=== PATIENT | female | born 1935 | race Caucasian/White ===

== ENCOUNTER → 2023-04-20 08:15 | Outpatient (REF) | payer MEDICARE, BC, SELFPAY ==
[2023-04-20 09:01] LABS: Hematocrit 48.9 % (37.0-47.0); Hemoglobin 15.9 g/dL (12.0-16.0); Mean Corp Hgb Conc. 32.5 g/dL (33.0-37.0); Mean Corpuscular Hgb 30.3 pg (27.0-31.0); Mean Corpuscular Volume 93.1 fL (81.0-99.0); Mean Platelet Volume 11.1 fL (7.4-10.4); Platelet Count 238 10^3/uL (130-400); Red Blood Cell Count 5.25 10^6/uL (4.20-5.40); Red Cell Dist. Width 13.6 % (11.5-14.5); White Blood Cell Count 8.8 10^3/uL (4.8-10.8)
[2023-04-20 09:33] LABS: ALT (SGPT) 13 U/L (0-35); AST (SGOT) 20 U/L (14-36); Albumin 4.7 g/dl (3.5-5.0); Alkaline Phosphatase 93 U/L (38-126); Blood Urea Nitrogen 26 mg/dl (7-17); Carbon Dioxide 25 mmol/L (22-30); Chloride 106 mmol/L (98-107); Glucose 95 mg/dl (70-99); HDL Cholesterol 98 mg/dl; LDL Cholesterol, Calculated 117 mg/dl; Phosphorus 4.3 mg/dl (2.5-4.5); Potassium 4.2 mmol/L (3.5-5.1); Sodium 141 mmol/L (135-145); Total Bilirubin 1.9 mg/dl (0.2-1.3); Total Cholesterol 235 mg/dl (50-199); Total Protein 7.1 g/dl (6.3-8.2); Triglyceride 104 mg/dl (10-149); Very Low Density Lipoprotein 20 mg/dl (0-30); eGFR 25.24
[2023-04-20 09:58] LABS: Intact PTH 88.4 pg/ml (13.6-85.8)
[2023-04-20 17:57] LABS: Urine Albumin Trace (Neg - Trace); Urine Bilirubin Negative (Negative); Urine Character Clear (Clear); Urine Color Yellow; Urine Glucose Negative (Negative); Urine Ketone Negative (Negative); Urine Leukocyte Negative (Negative); Urine Nitrite Negative (Negative); Urine Occult Blood Negative (Negative); Urine Urobilinogen Negative (Neg - 1+)
== END ==
LOC: REG 08:15
PROVIDERS: ATTENDING PHYSICIAN Specialist
DX: N18.32 Chronic kidney disease, stage 3b (principal)
CPT/HCPCS: 36415; 80053; 80061; 80069; 81003; 83970; 85027

== ENCOUNTER → 2023-05-07 09:07 | Outpatient (REF) | payer MEDICARE, BC, SELFPAY ==
[2023-05-07 10:49] LABS: Blood Urea Nitrogen 28 mg/dl (7-17); Calcium 9.6 mg/dl (8.4-10.2); Carbon Dioxide 26 mmol/L (22-30); Chloride 108 mmol/L (98-107); Glucose 84 mg/dl (70-99); Potassium 5.2 mmol/L (3.5-5.1); Sodium 138 mmol/L (135-145); eGFR 22.38
== END ==
LOC: REG 09:07
PROVIDERS: ATTENDING PHYSICIAN Specialist; FAMILY PHYSICIAN Internal Medicine
DX: I10 Essential (primary) hypertension (principal); N18.4 Chronic kidney disease, stage 4 (severe)
CPT/HCPCS: 36415; 80048

== ENCOUNTER → 2023-05-27 10:03 | Outpatient (REF) | payer MEDICARE, BC, SELFPAY ==
[2023-05-27 12:02] LABS: Blood Urea Nitrogen 21 mg/dl (7-17); Calcium 10.3 mg/dl (8.4-10.2); Carbon Dioxide 24 mmol/L (22-30); Chloride 107 mmol/L (98-107); Glucose 89 mg/dl (70-99); Potassium 4.7 mmol/L (3.5-5.1); Sodium 139 mmol/L (135-145); eGFR 28.84
== END ==
LOC: REG 10:03
PROVIDERS: ATTENDING PHYSICIAN Specialist
DX: I10 Essential (primary) hypertension (principal); N18.4 Chronic kidney disease, stage 4 (severe)
CPT/HCPCS: 36415; 80048

== ENCOUNTER → 2023-07-01 09:49 | Outpatient (REF) | payer MEDICARE, BC, SELFPAY | LOC: RAD 09:49 | PROVIDERS: ATTENDING PHYSICIAN Podiatrist Foot Surgery; FAMILY PHYSICIAN Internal Medicine | DX: Z01.818 Encounter for other preprocedural examination (principal) | CPT/HCPCS: 93922; 93925 ==

== ENCOUNTER → 2023-08-12 09:20 | Outpatient (REF) | payer MEDICARE, BC, SELFPAY | LOC: HWRCS 09:20 | PROVIDERS: ATTENDING PHYSICIAN Internal Medicine Cardiovascular Disease; FAMILY PHYSICIAN Internal Medicine | DX: I34.0 Nonrheumatic mitral (valve) insufficiency (principal) | CPT/HCPCS: 93306 ==

== ENCOUNTER → 2023-08-23 11:52 | Outpatient (REF) | payer MEDICARE, BC, SELFPAY | LOC: RCS 11:52 | PROVIDERS: ATTENDING PHYSICIAN Internal Medicine Cardiovascular Disease; FAMILY PHYSICIAN Family Medicine | DX: I48.21 Permanent atrial fibrillation (principal) | CPT/HCPCS: 93225; 93226 ==

== ENCOUNTER → 2023-08-30 08:40 | Outpatient (REF) | payer MEDICARE, BC, SELFPAY ==
[2023-08-30 09:52] LABS: Hematocrit 49.3 % (37.0-47.0); Hemoglobin 15.5 g/dL (12.0-16.0); Mean Corp Hgb Conc. 31.4 g/dL (33.0-37.0); Mean Corpuscular Hgb 29.4 pg (27.0-31.0); Mean Corpuscular Volume 93.5 fL (81.0-99.0); Mean Platelet Volume 11.3 fL (7.4-10.4); Platelet Count 207 10^3/uL (130-400); Red Blood Cell Count 5.27 10^6/uL (4.20-5.40); White Blood Cell Count 7.9 10^3/uL (4.8-10.8)
[2023-08-30 09:56] LABS: Blood Urea Nitrogen 30 mg/dl (7-17); Carbon Dioxide 24 mmol/L (22-30); Chloride 108 mmol/L (98-107); Glucose 89 mg/dl (70-99); Potassium 4.8 mmol/L (3.5-5.1); Sodium 142 mmol/L (135-145); eGFR 28.67
== END ==
LOC: REG 08:40
PROVIDERS: ATTENDING PHYSICIAN Specialist
DX: N18.32 Chronic kidney disease, stage 3b (principal); E78.5 Hyperlipidemia, unspecified
CPT/HCPCS: 36415; 80048; 85027

== ENCOUNTER 2023-08-30 09:01 | Emergency (ER) | payer MEDICARE, BC, SELFPAY ==
[2023-08-30 09:03] VITALS: BP 169/97
--- NOTE | 2023-08-30 09:35 | ED.MUSCINJ ---
HPI-Injury
General
Chief Complaint: Skin Problem
Source: patient
Exam Limitations: none
Time Seen by Provider: 08/30/23 09:07
Nursing documentation reviewed up to this point in time: agreed with
History of Present Illness-Injury
Initial Injury comments:
88 yo female hx afib on Eliquis, HTN, HLD states a heavy metal chair fell over impacting her right lateral hernandez 3 days ago. Has had pain with ambulating off and on since. She also has felt fatigued and wonders if she has a clot. Denies SOB, CP.
Past History
Past History
ED Past Medical History: Arrthythmia, CHF, GERD, HTN and Hypercholesterolemia
ED Past Surgical History: Gynecological and Other
Social History
Tobacco: Non-smoker
Alcohol: None
Personal:
Living: with family
Employment: Retired
Family History
Family History: Other (Noncontributory)
Review of Systems
Review of Systems
Allergies reviewed?: Yes
All Other Systems: ROS reviewed and negative except as documented in HPI and ROS
Respiratory: Denies trouble breathing
Cardiac: Denies chest pain
Musculoskeletal: Reports other (pain bruise out right lower leg)
Phy Exam
Physical Exam
Physical Exam:
GENERAL: No acute distress. A&Ox3.
CONSTITUTIONAL: Afebrile.
RESPIRATORY: Regular respirations, nonlabored, lungs clear.
CARDIOVASCULAR: Regular rate and rhythm, no murmurs, no rubs.
GI: Soft, nontender
MUSCULOSKELETAL: Moves with ease. Well perfused. Lateral aspect lower leg has area of mild ecchymosis and mild tenderness. There is no
SKIN: Warm, dry, pink
PSYCH: Normal mood and affect. Well kept, interactive and appropriate
NEUROLOGIC: Awake, alert and oriented. No focal neurological deficits
Injury Course
Orders/Labs/Results
Orders:
Orders
08/30/23 09:16
Tib/Fib, Right 2 View [CR Leg Tibia/fibula Right 2 Vw] Urgent
Comment:
Reason For Exam: impact heavy chair to lateral lower hernandez
MDM/Problems Addressed
Differential Diagnosis Includes:
contusion, fracture.
MDM/Problems Addressed:
88 yo female hx afib on Eliquis, HTN, HLD states a heavy metal chair fell over impacting her right lateral hernandez 3 days ago. Has had pain with ambulating off and on since. She also has felt fatigued and wonders if she has a clot. Denies SOB, CP.
Right calf not swollen, tender, warm, on Eliquis do not suspect clot
Xray Right Tib fib read by me: No fracture.
Patient out of bed and ambulating well, dressing herself, stable for discharge.
For her feeling fatigued: No chest pain, no SOB, no n/v, no indication for cardiac w/u.
Out pt labs from earlier today reviewed, nothing worrisome, basically at her baseline. Provided copy to pt. She will f/u with her F[employer] Puller who ordered labs.
Pt feels much better after reassurance. Offered wheelchair for D/C but she insisted on walking out.
*Critical Care Note
Total Time (30-74mins, 75-104mins- exclusive of procedures): Not Applicable
ED Attending Note
-
Portions of this chart may have been created with voice recognition software.� Occasional wrong word or��sound alike� substitutions may have occurred due to the inherent limitations of voice recognition software.
Discharge Plan
Departure
Patient Disposition: Home (Routine Discharge)
Date of Disposition: 08/30/23
Time of Disposition: 10:10
Patient with high blood pressure during this ER visit?: No
Condition: Good
Discharge Problem:
Contusion of right lower leg
Instructions: Contusion
Prescriptions:
No Action
cholecalciferol (vitamin D3) 1,000 UNITS tablet
1,000 units PO DAILY
Eliquis 2.5 MG tablet
2.5 mg PO BID Qty: 1 0RF
Rx Instructions:
resume after 14 days post-op when INR <2
--stop Coumadin
atorvastatin 20 MG tablet
20 mg PO DAILY
diltiazem HCl 240 MG capsule,extended release 24hr
240 mg PO DAILY
docusate sodium 100 mg Capsule
100 mg PO BID Qty: 60 0RF
polyethylene glycol 3350 17 gram Powder In Packet
17 g PO DAILY Qty: 30 0RF
Referrals:
Jessica Villalobos, DO [Family Provider] - As needed
Activity Restrictions/Additional Instructions:
As we discussed, your x-ray shows nothing broken. This is a deep bruise or contusion.
You have no sign of a blood clot.
I reviewed your lab work from earlier this morning and see nothing worrisome
Interventions
Interventions:
*Risk Screen - Suicide Last Done: 08/30/23 09:03
*General Assessment Last Done: 08/30/23 09:03
*Neglect/Abuse Screening Last Done: 08/30/23 09:03
ED- Fall Risk Assessment Last Done: 08/30/23 10:24
*ED COVID-19 Vaccine History Last Done: 08/30/23 10:23
*Nursing Disposition Last Done: 08/30/23 10:24
ED-Skin Assessment Last Done: 08/30/23 10:23
Discharge Date and Time
Discharge Date/Time: 08/30/23 10:25
Print Language: NIUEAN
[2023-08-30 10:24] VITALS: BP 167/82
== END 2023-08-30 10:25 | disposition home or self-care (01) ==
LOC: EMR 09:01
PROVIDERS: EMERGENCY PHYSICIAN Emergency Medicine; FAMILY PHYSICIAN Family Medicine
DX: S80.11XA Contusion of right lower leg, initial encounter (principal); W20.8XXA Other cause of strike by thrown, projected or falling object, initial encounter; E78.00 Pure hypercholesterolemia, unspecified; I11.0 Hypertensive heart disease with heart failure; I50.9 Heart failure, unspecified; I13.0 Hypertensive heart and chronic kidney disease with heart failure and stage 1 through stage 4 chronic kidney disease, or unspecified chronic kidney disease; N18.2 Chronic kidney disease, stage 2 (mild); K21.9 Gastro-esophageal reflux disease without esophagitis; I48.91 Unspecified atrial fibrillation; M19.90 Unspecified osteoarthritis, unspecified site; F41.9 Anxiety disorder, unspecified; Z79.01 Long term (current) use of anticoagulants; Z85.828 Personal history of other malignant neoplasm of skin; Z86.73 Personal history of transient ischemic attack (TIA), and cerebral infarction without residual deficits
CPT/HCPCS: 99283; 73590

== ENCOUNTER → 2024-05-09 08:40 | Outpatient (REF) | payer MEDICARE, BC, SELFPAY ==
[2024-05-09 11:00] LABS: Protein/creatinine Ratio 0.4; Urine Protein 11 mg/dl
== END ==
LOC: REG 08:40
PROVIDERS: ATTENDING PHYSICIAN Specialist
DX: N18.32 Chronic kidney disease, stage 3b (principal); I10 Essential (primary) hypertension; I48.0 Paroxysmal atrial fibrillation; E78.2 Mixed hyperlipidemia; R60.0 Localized edema
CPT/HCPCS: 36415; 82570; 84156

== ENCOUNTER → 2024-06-26 13:41 | Outpatient (REF) | payer MEDICARE, BC, SELFPAY | LOC: HWRCS 13:41 | PROVIDERS: ATTENDING PHYSICIAN Internal Medicine Cardiovascular Disease; FAMILY PHYSICIAN Internal Medicine | DX: I34.0 Nonrheumatic mitral (valve) insufficiency (principal) | CPT/HCPCS: 93306 ==

== ENCOUNTER 2024-07-07 04:13 | Inpatient (IN) | payer MEDICARE, BC, SELFPAY ==
[2024-07-07] VITALS (21 sets, daily range): BP systolic 128–165; BP diastolic 70–102
[2024-07-07 01:21] LABS: % Basophils 0.3 % (0-2); % Eosinophils 0.7 % (0-6); % Immature Granulocytes 0.2 % (0-0.5); % Lymphocytes 9.8 % (20.5-51.1); % Monocytes 4.4 % (1.7-9.3); % Neutrophils 84.6 % (42.2-75.2); Absolute Eosinophils 0.1 10^3/uL (0-0.7); Absolute Monocytes 0.5 10^3/uL (0.1-0.6); Absolute Neutrophils 8.9 10^3/uL (1.4-6.5); Mean Corp Hgb Conc. 33.3 g/dL (33.0-37.0); Mean Corpuscular Hgb 30.3 pg (27.0-31.0); Mean Corpuscular Volume 90.9 fL (81.0-99.0); Nucleated Red Blood Cells % 0 %; Platelet Count 201 10^3/uL (130-400); Red Blood Cell Count 4.95 10^6/uL (4.20-5.40); Red Cell Dist. Width 13.9 % (11.5-14.5); White Blood Cell Count 10.6 10^3/uL (4.8-10.8)
--- NOTE | 2024-07-07 01:24 | ED.GENMED ---
History of Present Illness
General
Chief Complaint: Abdominal Pain
Source: patient
Exam Limitations: none
Time Seen by Provider: 07/07/24 00:59
Nursing documentation reviewed up to this point in time: agreed with
History of Present Illness
History of Present Illness:
89-year-old female presents to the emergency department with severe abdominal pain that began this afternoon. Patient had nausea and vomiting. She states that she was retching throughout the day. She came in tonight because the pain became more
severe. Patient does admit to having a small amount of nonbloody diarrhea this evening. Patient states that the pain is reminiscent of a previous bowel obstruction. Denies chest pain or shortness of breath. Denies fever, chills, blurry vision,
or headache.
Past History
Past History
ED Past Medical History: Arrthythmia, CHF, GERD, HTN and Hypercholesterolemia
ED Past Surgical History: Gynecological and Other
Social History
Tobacco: Non-smoker
Alcohol: None
Personal:
Living: with family
Employment: Retired
Family History
Family History: Other (Noncontributory)
Review of Systems
Review of Systems
Allergies reviewed?: Yes
Other source history: ambulance crew
All Other Systems: ROS reviewed and negative except as documented in HPI and ROS
Constitutional: Reports no symptoms
EENT: Reports no symptoms
Respiratory: Reports no symptoms
Cardiac: Reports no symptoms
ABD/GI: Reports abdominal pain, nausea, vomiting and diarrhea
: Reports no symptoms
Musculoskeletal: Reports no symptoms
Skin: Reports no symptoms
Neurological: Reports no symptoms
Endocrine: Reports no symptoms
Hematologic/Lymphatic: Reports no symptoms
Psychiatric: Reports no symptoms
Phy Exam
General Physical Exam
General Presentation: well appearing and no apparent distress
General Skin: warm and dry
General Habitus: normal
General Mental: alert
General Hydration: appears well hydrated
ENT Exam
ENT Exam: EOMI, pharynx normal, neck supple and normocephalic
Eye Exam
Eye Exam: PERRL, cornea clear and conjunctiva normal
Cardiovascular Exam
Cardiovascular Exam: regular rate/rhythm, no edema, no murmur and normal peripheral pulses
Pulmonary Exam
Pulmonary Exam: lungs clear, no respiratory distress, no rales, no crackles, no rhonchi, no stridor, no wheezing and no cough
Gastrointestinal Exam
Gastrointestinal Exam: non tender, no organomegaly, no pulsatile mass, abnormal bowel sounds (High-pitched bowel sounds) and guarding
Neurological Exam
Neurological Exam: alert, oriented x3, no motor deficits and speech normal
Musculoskeletal Exam
Musculoskeletal Exam: full ROM and no edema
Skin Exam
Skin Exam: normal color, warm/dry, no rash and no petechia
Psychiatric Exam
Psychiatric Exam: normal mood/affect
Course
Orders/Labs/Results
Orders:
Orders
07/07/24 00:58
IV Insert/Care/Rem.- Treatment PRN
Straight cath- Treatment ONCE
Urinalysis Reflex To Culture Urgent
Date Specimen was Collected: 07/07/24
Time Specimen was Collected: 00:58
07/07/24 00:59
CT Abd/pelvis W Iv Cont Urgent
Comment:
Reason For Exam: diffuse abd pain n/v
07/07/24 01:06
Complete Blood Count/With Diff Urgent
Lactic Acid Q4H
Comment: CANCEL 2nd LACTIC ACID IF 1st LACTIC ACID IS LESS THAN 2
07/07/24 01:07
Comprehensive Metabolic Panel Urgent
Lipase Urgent
07/07/24 01:24
Morphine Sulfate 4 mg IV NOW STA
Ondansetron Injectable [Zofran] 4 mg IV NOW STA
07/07/24 05:00
Lactic Acid Q4H
Comment: CANCEL 2nd LACTIC ACID IF 1st LACTIC ACID IS LESS THAN 2
Abnormal Lab Results
07/07/24 07/07/24
01:06 01:07
MPV 11.0 H fL
(7.4-10.4)
Absolute Neuts (auto) 8.9 H 10^3/uL
(1.4-6.5)
Absolute Lymphs (auto) 1.0 L 10^3/uL
(1.2-3.4)
Neutrophils % 84.6 H %
(42.2-75.2)
Lymphocytes % 9.8 L %
(20.5-51.1)
Potassium 3.3 L mmol/L
(3.5-5.1)
Chloride 120 H mmol/L
(98-107)
Carbon Dioxide 21 L mmol/L
(22-30)
BUN 22 H mg/dl
(7-17)
Creatinine 1.3 H mg/dL
(0.6-1.0)
Calcium 7.1 L mg/dl
(8.4-10.2)
AST 12 L U/L
(14-36)
Total Protein 4.4 L g/dl
(6.3-8.2)
Albumin 2.6 L g/dl
(3.5-5.0)
07/07/24 01:06
07/07/24 01:07
Vital Signs
Initial and Last Documented VS:
Initial Vital Signs
Temp
98.4 F
07/07/24 00:58
Last Documented Vital Signs
Temp Pulse Resp BP Pulse Ox
98.4 F 64 19 139/76 92
07/07/24 00:58 07/07/24 03:00 07/07/24 03:00 07/07/24 03:00 07/07/24 03:00
*Critical Care Note
Total Time (30-74mins, 75-104mins- exclusive of procedures): Not Applicable
ED Attending Note
-
Portions of this chart may have been created with voice recognition software.� Occasional wrong word or��sound alike� substitutions may have occurred due to the inherent limitations of voice recognition software.
Discharge Plan
Departure
Patient Disposition: Admit
Date of Disposition: 07/07/24
Time of Disposition: 03:31
Admit to: Telemetry
Presentation/result/management discussed w/ accepting MD/DO: Hospitalist
Discharge Problem:
SBO (small bowel obstruction)
Prescriptions:
No Action
cholecalciferol (vitamin D3) 1,000 UNITS tablet
1,000 units PO DAILY
Eliquis 2.5 MG tablet
2.5 mg PO BID Qty: 1 0RF
Rx Instructions:
resume after 14 days post-op when INR <2
--stop Coumadin
atorvastatin 20 MG tablet
20 mg PO DAILY
diltiazem HCl 240 MG capsule,extended release 24hr
240 mg PO DAILY
docusate sodium 100 mg Capsule
100 mg PO BID Qty: 60 0RF
polyethylene glycol 3350 17 gram Powder In Packet
17 g PO DAILY Qty: 30 0RF
Referrals:
Tiffany Armenta MD [Family Provider] -
Interventions
Interventions:
*Risk Screen - Suicide Last Done: 07/07/24 00:58
*General Assessment Last Done: 07/07/24 00:58
*Neglect/Abuse Screening Last Done: 07/07/24 00:58
*ED- Fall Risk Assessment Last Done: 07/07/24 00:58
*ED COVID-19 Vaccine History Last Done: 07/07/24 00:58
GW-Tbmwuc-Iwnkmrkxbd Assessment Last Done: 07/07/24 00:58
Discharge Date and Time
Print Language: MALAY
[2024-07-07 01:30] LABS: Lactic Acid 1.1 mmol/L (0.7-2.0)
[2024-07-07 01:31] LABS: ALT (SGPT) < 10 U/L (0-35); AST (SGOT) 12 U/L (14-36); Albumin 2.6 g/dl (3.5-5.0); Alkaline Phosphatase 50 U/L (38-126); Blood Urea Nitrogen 22 mg/dl (7-17); Calcium 7.1 mg/dl (8.4-10.2); Carbon Dioxide 21 mmol/L (22-30); Chloride 120 mmol/L (98-107); Glucose 94 mg/dl (70-99); Lipase 49 U/L (23-300); Potassium 3.3 mmol/L (3.5-5.1); Sodium 145 mmol/L (135-145); Total Bilirubin 0.8 mg/dl (0.2-1.3); Total Protein 4.4 g/dl (6.3-8.2); eGFR 39.31
[2024-07-07] MEDS: ZOFRAN 4 MG IV ×3 (01:38→10:50)
[2024-07-07] MEDS: MORPHINE SULFATE 4 MG IV (01:38)
--- NOTE | 2024-07-07 03:34 | HPS.HSE ---
Family Physician
-
Family Physician: Tiffany Armenta
Chief Complaint
-
Abdominal pain
History of Present Illness
This is a 89-year-old female with past medical history significant for atrial fibrillation on anticoagulation, diastolic CHF, hypertension, CKD presented to the emergency department with abdominal pain and found to have a small bowel obstruction.
Patient tells me that she has had a small bowel obstruction several years ago but I cannot find any records that. Hospital. She has a prior history of intra-abdominal surgery many years ago. Patient reported that after dinnertime she is around
developed diffuse abdominal pain associated with copious amount of vomiting and dry heaving. She had 1 loose bowel movement as well. With time to dry heaving cleared she was not bringing up anything but continued to dry heave. Due to the pain she
decided come to the emergency department. She denies any fevers or chills.
In the emergency department she was afebrile, blood pressure was 139/76 with a pulse of 64 and she was satting 95% on room air.
CBC was unremarkable. Electrolytes and with unremarkable with potassium of 3.3 and a chloride of 120. BUN and creatinine were stable compared to prior with normal glucose of 94. Lactic acid was negative.
CT scan of the abdomen pelvis showing acute small bowel obstruction with a transition point in the area of the right inguinal hernia with proximal small bowel dilated up to 4.2 cm. Small left inguinal hernia containing nonobstructed small bowel.
Medical History
Past Medical History
Past Medical History: Reports Other
Additional Past Medical History:
Atrial fib
Congestive heart failure
Hypertension
Hyperlipidemia
GERD
Hernia
Past Surgical History: Reports Other
Additional Past Surgical History:
Hernia surgery
bilateral knee replacement
Social History
Tobacco: Non-smoker
Alcohol: Occasional
Drug: None
Personal: Single
Living: Alone
Employment: Retired
Family History
Family History: Not pertinent
Allergies / Home Medications
Allergies reflects when Allergies were last updated in [employer].
Home Medications with original date entered in [employer]
Allergy/Medication List:
Allergies
Allergy/AdvReac Type Severity Reaction Status Date / Time
lisinopril Allergy cough Verified 02/16/22 10:33
SUMMER ALLERGIES Allergy sneezing Uncoded 02/16/22 10:33
Home Medications Table - record
Medication Instructions Recorded Confirmed
cholecalciferol (vitamin D3) 25 1,000 units PO DAILY Supplement 01/11/15 02/16/22
mcg (1,000 unit) tablet
apixaban 2.5 mg tablet (Eliquis) 2.5 mg PO BID ##1 04/21/18 02/16/22
atorvastatin 20 mg tablet 20 mg PO DAILY High cholesterol 11/07/20 02/16/22
diltiazem HCl 240 mg 240 mg PO DAILY Blood pressure 11/07/20 02/16/22
capsule,extended release 24 hr
Review of Systems
-
History Source: Patient
Constitutional: Reports No Symptoms
EENT: Reports No Symptoms
Respiratory: Reports No Symptoms
Cardiac: Reports No Symptoms
Abdomen/GI: Reports Abdominal Pain, Nausea and Vomiting
: Reports No Symptoms
Musculoskeletal: Reports No Symptoms
Skin: Reports No Symptoms
Neurological: Reports No Symptoms
Endocrine: Reports No Symptoms
Hematologic/Lymphatic: Reports No Symptoms
Psych: Reports No Symptoms
Physical Exam
Vital Signs
Vital Signs
Temp Pulse Resp BP Pulse Ox
98.4 F 64 19 139/76 92
07/07/24 00:58 07/07/24 03:00 07/07/24 03:00 07/07/24 03:00 07/07/24 03:00
Physical Exam
General: Well Developed, Well Nourished and Conversant
HEENT: NormoCephalic, Anicteric, Moist mucous membranes and Atraumatic
Respiratory: Clear
Cardiac: S1/S2 and Irregular Rhythm
Breast: Deferred by me
GI: Soft, Non Tender, Non Distended and Normal Bowel Sounds
Rectal: Deferred by Provider
Genito-urinary: Deferred by me
Musculoskeletal: No Clubbing, No Cyanosis and No Edema
Skin: Warm
Neuro: AO x 3 and Nonfocal/grossly intact
Hematologic/Lymphatic: No Lymphadenopathy
Psych: Calm
Laboratory Results
-
07/07/24 01:06
07/07/24 01:07
Laboratory Results
Lactic Acid 1.1 mmol/L (0.7-2.0) 07/07/24 01:06
Total Bilirubin 0.8 mg/dl (0.2-1.3) 07/07/24 01:07
AST 12 U/L (14-36) L 07/07/24 01:07
ALT < 10 U/L (0-35) 07/07/24 01:07
Alkaline Phosphatase 50 U/L (38-126) 07/07/24 01:07
Lipase 49 U/L (23-300) 07/07/24 01:07
Data Reviewed
-
CT Scan: Report Reviewed by me
Lab Data: Labs Reviewed by me
Old Records: Reviewed
Impression/Plan
-
IMPRESSION:
89 female with small bowel obstruction. Possibly on basis of adhesion vs hernia. Radiology does not think it requires surgical intervention. Abdominal exam is benign and patient symptoms much relieved with medications. No current vomiting or
abdominal pain. Has positive bowel sounds.
PLAN:
1. SBO
- admit to med/surg
- NPO for now except required meds
- IV LR for now
- replete K
- continue antiemetics for now, if vomiting or pain intolerable will place NGT
- unlikely surgical per rads, consulted surgery non-emergently
2. AFIB
- while npo will continue eliquis and cardizem
DVT PPX - on eliquis
Code status - DNR
[2024-07-07 04:32] LABS: Urine Albumin Negative (Neg - Trace); Urine Bilirubin Negative (Negative); Urine Character Clear (Clear); Urine Color Yellow; Urine Glucose Negative (Negative); Urine Ketone Negative (Negative); Urine Leukocyte Negative (Negative); Urine Nitrite Negative (Negative); Urine Occult Blood Negative (Negative); Urine Urobilinogen Negative (Neg - 1+)
[2024-07-07] MEDS: D5LR 1000 IV (04:33)
[2024-07-07] MEDS: ROXICODONE 5 MG PO (05:25)
[2024-07-07] MEDS: MORPHINE SULFATE 2 MG IV (08:25)
[2024-07-07] MEDS: CARDIZEM CD 240 MG PO (08:25)
--- NOTE | 2024-07-07 10:55 | CON.GS ---
Addendum entered and electronically signed by Gorge Marx MD 07/07/24 12:27:
I saw and examined the patient independently.
The resident's documentation was reviewed and I agree with the note, assessment and plan except where noted below.
Comment: This is an 89-year-old female with a history of vaginal hysterectomy, atrial fibrillation on Eliquis, last dose yesterday morning, prior remote open left inguinal hernia repair with mesh who presents with abdominal pain, nausea vomiting
found to have an SBO and large bilateral inguinal hernias (recurrent left), with a transition point in the right inguinal hernia.
Initially patient reluctant but now amenable to surgery.
She understands that she will have to wait for DNR perioperatively.
Will move forward with robotic bilateral inguinal hernia repairs with mesh.
She had a recent echo which is reassuring.
Risks/Benefits/Alternatives, expected postoperative course and possible complications (bleeding, infection, injury to surrounding structures, acute/chronic pain) discussed at length. Patient wishes to proceed with surgery. All questions answered.
Consent obtained. I also spoke with her eldest son Lux who also agrees with proceeding with surgery.
I spent 75 minutes in total for the care of this patient today including direct patient care and counseling, reviewing labs, imaging, coordination of care, as well as documentation.
Original Note:
Consultation
-
Date/Time Consultation Requested: 07/07/24 04:18AM
Date/Time Consultation Performed: 07/07/24 9:30 AM
Requesting Provider: Mannie Lamb
Performing Provider: Gorge Pruitt
Reason for Consultation: Small bowel obstruction
Medical History
-
Chief Complaint: Severe abdominal pain
History of Present Illness:
Patient is an 89-year-old female, DO NOT RESUSCITATE, with a past medical history of atrial fibrillation, CHF, hypertension, CKD who presented to the [facility] emergency department via EMS this morning with diffuse severe abdominal pain associated
with dry heaving and 1 episode of bilious vomiting. On admission she had no fever/chills/melena/weight loss/dysuria/chest pain/shortness of breath. She has a previous surgical history of hernia surgical repair with mesh 20 years ago. She also has
bilateral inguinal hernias which have progressively increased in size over the past couple years. No history of inflammatory bowel disease, cancer, bowel obstruction.
On admission labs show potassium of 3.3 and chloride of 120. BUN, creatinine, lactic acid normal.
CT scan on admission shows developing small bowel obstruction due to bowel containing right inguinal hernia. Right hernia present previously with moderate fluid, slightly increased in size now measuring 6 cm . Small bowel also containing left
inguinal hernia that measures 4.1 cm, no bowel wall thickening or fluid.
Past Medical History
Past Medical History: Other (See HPI)
Past Surgical History: Gynecological (Complete hysterectomy) and Hernia Repair
Social History
Tobacco: Non-Smoker
Alcohol: None
Drug: None
Personal:
Living: With Family
Employment: Retired
Family History
Family History: Reviewed & Not Pertinent
Allergies / Home Medications
Allergy/AdvReac Type Severity Reaction Status Date / Time
lisinopril Allergy cough Verified 07/07/24 00:57
pollen extracts Allergy SUMMER Verified 07/07/24 00:57
ALLERGIES-SNEEZING
�Medication �Instructions �Recorded �Confirmed �Type
cholecalciferol (vitamin D3) 25 1,000 units PO DAILY Supplement 01/11/15 07/07/24 History
mcg (1,000 unit) tablet
apixaban 2.5 mg tablet (Eliquis) 2.5 mg PO BID ##1 04/21/18 07/07/24 Rx
diltiazem HCl 240 mg 240 mg PO DAILY Blood pressure 11/07/20 07/07/24 History
capsule,extended release 24 hr
docusate sodium 100 mg capsule 100 mg PO DAILY 07/07/24 07/07/24 History
(Colace)
polyethylene glycol 3350 17 gram 17 g PO DAILY PRN constipation 07/07/24 07/07/24 History
oral powder packet (Miralax)
Review of Systems
-
History Source: Patient
All other systems: Negative unless noted
Abdomen/GI: Abdominal Pain, Nausea and Vomiting
A 10 point review of systems was completed, and was negative except as per HPI.
Physical Exam
Vital Signs
Temp Pulse Resp BP Pulse Ox
98.2 F 60 17 154/96 93
07/07/24 08:00 07/07/24 08:25 07/07/24 05:00 07/07/24 08:25 07/07/24 08:25
07/06/24 07/07/24 07/08/24
06:59 06:59 06:59
Actual Weight 62.3 kg
Lab Results
07/07/24 01:06
07/07/24 01:07
WBC 10.6 10^3/uL (4.8-10.8) 07/07/24 01:06
Hgb 15.0 g/dL (12.0-16.0) 07/07/24 01:06
Hct 45.0 % (37.0-47.0) 07/07/24 01:06
Plt Count 201 10^3/uL (130-400) 07/07/24 01:06
Abs Immat Gran (auto) 0.0 10^3/uL (0-0.05) 07/07/24 01:06
Neutrophils % 84.6 % (42.2-75.2) H 07/07/24 01:06
Physical Exam
General: Well Developed
GI: Tender (Abdomen is diffusely tender with 2 palpable bulges in the bilateral inguinal regions, prominent with coughing, soft and reducible)
Musculoskeletal: No Clubbing, No Cyanosis and No Edema
Skin: Warm and Dry
Neuro: Awake, Alert, Oriented and AO x 3
Psych: Calm
Data Reviewed
-
CT Scan: Report Reviewed by me and Discussed with Physician
Labs: Labs Reviewed by me and Discussed with Physician
Assessment / Plan
-
Small bowel obstruction due to bowel containing right inguinal hernia
Bilateral inguinal hernia (R>L):
- CT scan of the abdomen shows developing small bowel obstruction due to bowel containing right inguinal hernia. Right hernia present previously with moderate fluid, slightly increased in size now measuring 6 cm . Small bowel also containing left
inguinal hernia that measures 4.1 cm, no bowel wall thickening or fluid.
- Physical examination shows bilateral inguinal hernia, right hernia larger than the left, tender to palpation, soft and reducible
- Continue n.p.o.
- Continue IV lactated Ringer's to prevent volume loss and correct for electrolyte losses
- Continue Zofran as needed for nausea/vomiting
- Continue pain medication with morphine, Tylenol, oxy as needed
- Serial abdominal exams to monitor for strangulation and assess reducibility
- Monitor electrolytes
- Anticipate performing surgery to reduce/repair hernias via laparoscopic inguinal hernia repair, assess viability of the bowel, assess for transition point in the bowels, prevent incarceration/strangulation
Paroxysmal atrial fibrillation:
- Continue Cardizem
- heart rate is 60 and well-controlled, keep less than 110
- Hold the Eliquis in anticipation for surgery
Hypokalemia:
- Replete potassium
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
- Creatinine is 1.3
- Her baseline is usually 1.3-1.5
- Monitor creatinine and BUN
- Monitor electrolytes and observe for hyper/hypo-kalemia, hypo-/hypernatremia
- Continue IV fluids to help maintain intravascular volume
- Avoid all nephrotoxic drugs
- renally dose medications
DO NOT RESUSCITATE
[2024-07-07] MEDS: KCL 270 MEQ IV (12:33)
--- NOTE | 2024-07-07 13:06 | W.SUR.PREOP ---
Pre-Operative Surgical Note
-
I have examined this patient prior to the performance of the scheduled procedure.
The patient's condition is unchanged from the time of the current History and
Physical and the patient is able to undergo the scheduled procedure.
--- NOTE | 2024-07-07 13:33 | PTCARENOTE ---
pt sent to OR with belongings including cell phone and ordered ancef.
--- NOTE | 2024-07-07 16:08 | W.IMMPOSTOP ---
Surgical Immed Post Op Note
-
Primary Surgeon: Gorge Marx MD
Assisting Surgeon: None
Sales And Service Change Leader: SUSANA Nina
Pre-op Diagnosis: SBO, incarcerated right inguinal hernia, recurrent left inguinal hernia
Post-op Diagnosis: Same
Procedure Performed:
1. Robotic right incarcerated inguinal hernia repair with mesh.
2. Robotic recurrent left inguinal hernia repair with mesh.
Anesthesia Type: General
Specimen / Cultures: None
Estimated Blood Loss: 11 cc
Complications: None
Operative Findings:
Large bilateral inguinal hernias, right greater than left. The right containing small bowel adhesed to the peritoneum. A complete preperitoneal flap was developed from the left to the right side. Small working space. Critical view of the MPO was
achieved bilaterally. On the left side the patient had a recurrent left indirect inguinal hernia, no direct or femoral components. There was a large cord lipoma that was reduced and resected. On the right side the patient had a large right
indirect inguinal hernia, a small femoral component, no direct component. Here also there was a large cord lipoma that was reduced and resected. Large Bard soft 3D max uncoated polypropylene mesh was used to reinforce the space and secured at
coopers, superior medially and superior laterally. Significant amount of subcu crepitus due to CO2 insufflation.
POST OP PLAN:
Imaging: None
Labs: Routine AM
Diet: NPO, ok for ice chips and meds
Analgesia: Tylenol 650mg q6 Ivan, Dilaudid 0.5mg q2h PRN
Neuro/vascular checks: q4h
AC/AP: Hold Therapeutic AC for 48h, Ok for DVT PPx
Activity: Ad Sharon
Wound/Incisions/Drains: Routine
Abx: None
Dispo: Pending perioperative course, patient may need to remain intubated due to her subcutaneous emphysema. Family updated.
[2024-07-07] MEDS: DILAUDID 0.25 MG IV ×2 (16:52→17:14)
[2024-07-07] MEDS: MORPHINE SULFATE 1 MG IV (18:03)
--- NOTE | 2024-07-07 18:36 | PTCARENOTE ---
Receieved patient from PACU at 1830. patient AAOx3, drowsy bella easily arousable. Tolerating sipds of water. Son at bedside.Call parish in reach.
[2024-07-07] MEDS: D5LR IV (19:20)
[2024-07-08] MEDS: ROXICODONE 5 MG PO (01:19)
[2024-07-08] MEDS: D5LR 1000 IV (02:51)
[2024-07-08 03:32] VITALS: BMI 22.2
[2024-07-08 03:33] VITALS: BP 118/78
[2024-07-08 07:10] VITALS: BP 150/83
[2024-07-08] MEDS: CARDIZEM CD 240 MG PO (08:08)
[2024-07-08 08:29] LABS: Hematocrit 45.4 % (37.0-47.0); Hemoglobin 14.8 g/dL (12.0-16.0); Mean Corp Hgb Conc. 32.6 g/dL (33.0-37.0); Mean Corpuscular Hgb 29.9 pg (27.0-31.0); Mean Corpuscular Volume 91.7 fL (81.0-99.0); Mean Platelet Volume 11.4 fL (7.4-10.4); Platelet Count 201 10^3/uL (130-400); Red Blood Cell Count 4.95 10^6/uL (4.20-5.40); Red Cell Dist. Width 13.9 % (11.5-14.5); White Blood Cell Count 9.9 10^3/uL (4.8-10.8)
[2024-07-08 09:07] LABS: Blood Urea Nitrogen 19 mg/dl (7-17); Calcium 9.3 mg/dl (8.4-10.2); Carbon Dioxide 23 mmol/L (22-30); Chloride 107 mmol/L (98-107); Estimated Creatinine Clearance 22 ml/min; Glucose 132 mg/dl (70-99); Potassium 5.2 mmol/L (3.5-5.1); Sodium 140 mmol/L (135-145); eGFR 35.96
--- NOTE | 2024-07-08 10:27 | CM ---
Initial assessment completed. Patient is a is a 89-year-old female with past medical history significant for atrial fibrillation on anticoagulation, diastolic CHF, hypertension, CKD presented to the emergency department with abdominal pain and found
to have a small bowel obstruction. Robotic right incarcerated inguinal hernia repair with mesh and Robotic recurrent left inguinal hernia repair with mesh on 07/07.
Patient resides alone in a 2STH- 4 steps to enter. Patient is independent w/ ambulating, no device required. Independent w/ ADLs. No DME identified. No SNF/HC hx reported. OP therapy in the past following knee replacements. Supportive son.
Address, point of contact and insurance verified
PCP: Tiffany Armenta
Pharmacy: [facility]
Spoke w/ patient's son, Marin, insisting that patient goes to [facility] at d/c. Requesting Michael Alcocer. TT hospitalist on ordering PT when able
Plan: Family would like to plan for SNF
[2024-07-08 11:40] VITALS: BP 119/73
--- NOTE | 2024-07-08 12:01 | W.PN.HOSP.TC ---
Today's Communication/Plan
-
Assessment / Plan
Assessment / Plan
NAD
Scleral Anicteric
MMM
No JVD
CTABL
IRR, S1/S2
Soft, ND, BS+
Warm, Dry
AAOx3
Calm
SBO with incarcerated right inguinal hernia and recurrent left inguinal hernia
S/p robotic right incarcerated inguinal hernia repair with mesh and robotic recurrent left inguinal hernia repair with mesh on 07/07/94
Follow-up surgery recommendations
Clear liquid diet
Advance diet per surgery recommendations
Provide incentive spirometer 10 times per an hour
Hyperkalemia
Not hemolyzed however strange to increase by 2points
Repeat stat BMP
Monitor on telemetry
If >5.5 will obtain EKG if noted hyperK changes then will temporize along with CaGluco to stabilize cardiac membrane.
Will trial Kaliuresis. Would avoid Lokelma in the setting of postop intra-abdominal surgery
EKG ordered
Afib - Permnant
Cardizem po along with eliquis
CKD stage 3b, current Cr better then baseline
Avoid nephrotoxins
Monitor uop
avoid hypotension
PT/OT
Anticipated Discharge: > 48 hours
Subjective/Interval History
-
Date of Service: July 08, 2024
Seen and examined. No new complaints. No acute overnight events.
Drinking clear liquids at this time no bowel movement as of yet
Experiencing some tenderness
Objective Data
-
Labs:
Laboratory Results
07/08/24
07:56
WBC 9.9
Hgb 14.8
Hct 45.4
Plt Count 201
Sodium 140
Potassium 5.2 H D
Chloride 107
Carbon Dioxide 23
BUN 19 H
Creatinine 1.4 H
Glucose 132 H
Calcium 9.3 D
Vital Signs:
Vital Signs
Temp Pulse Resp BP Pulse Ox
98.3 F 67 16 119/73 98
07/08/24 11:40 07/08/24 11:40 07/08/24 11:40 07/08/24 11:40 07/08/24 11:40
I&O
07/07/24 07/08/24 07/09/24
06:59 06:59 06:59
Intake Total 1050 / 1050 300 / 300
Output Total 550 / 550
Balance 500 / 500 300 / 300
[2024-07-08 13:05] LABS: Blood Urea Nitrogen 19 mg/dl (7-17); Calcium 9.2 mg/dl (8.4-10.2); Carbon Dioxide 25 mmol/L (22-30); Chloride 108 mmol/L (98-107); Estimated Creatinine Clearance 21 ml/min; Glucose 127 mg/dl (70-99); Potassium 4.9 mmol/L (3.5-5.1); Sodium 139 mmol/L (135-145)
--- NOTE | 2024-07-08 13:17 | W.PN.GS2 ---
Addendum entered and electronically signed by Ty Newell MD 07/08/24 19:11:
I saw and examined the patient.
The SHERIFF'S SERGEANT's note was reviewed and I agree with the note.
�Continue n.p.o. with sips/chips
�Okay for subQ heparin DVT PPx; hold on Eliquis
Original Note:
Today's Communication / Plan
-
Sips of clears/IVF
Assessment / Plan
-
89 yo female with a h/o AF on renal dosed Eliquis (LD 07/06) presenting with SBO secondary to incarcerated right inguinal hernia with recurrent left inguinal hernia present as well
POD #1 Robotic right incarcerated hernia repair with mesh and robotic recurrent left inguinal hernia repair with mesh
Afebrile, VSS
H/H stable, no leukocytosis
Cr elevated and near baseline
Await bowel recovery
--NPO with sips of clears until passing flatus
--Continue IVF until diet able to be advanced
--Analgesics prn, no NSAIDs given CKD
--Hospitalist following for medical management, appreciate recs
--OOB/Ambulate
--Continue to hold AC until 48-72 hours post op/good bowel recovery
--VTE ppx with sq heparin today
--Labs in AM
Subjective Data
-
Date of Service: July 08, 2024
Patient seen and examined at bedside with Dr. Newell. Feels less drugged than she did in the ED. Notes that pain is minimal. Denies n/v. Not yet passing flatus.
Objective Data
-
Intake and Output
07/07/24 07/08/24 07/09/24
06:59 06:59 06:59
Intake Total 1050 / 1050 300 / 300
Output Total 550 / 550
Balance 500 / 500 300 / 300
Intake:
IV fluids (Total) 1050 / 1050 300 / 300
D5LR 150 / 150
Output:
Urine, Voided 550 / 550
Other:
Number of approximated MODERATE 4 1
amounts of urine
Vital Signs
Temp Pulse Resp BP Pulse Ox
98.3 F 67 16 119/73 98
07/08/24 11:40 07/08/24 11:40 07/08/24 11:40 07/08/24 11:40 07/08/24 11:40
Lab Results
07/08/24 07:56
07/08/24 12:37
Calcium 9.2 mg/dl (8.4-10.2) 07/08/24 12:37
Total Bilirubin 0.8 mg/dl (0.2-1.3) 07/07/24 01:07
AST 12 U/L (14-36) L 07/07/24 01:07
ALT < 10 U/L (0-35) 07/07/24 01:07
Alkaline Phosphatase 50 U/L (38-126) 07/07/24 01:07
Total Protein 4.4 g/dl (6.3-8.2) L 07/07/24 01:07
Albumin 2.6 g/dl (3.5-5.0) L 07/07/24 01:07
Physical Exam
-
NAD
ABD soft, NT, minimal distention
Incisions without erythema, intact glue
Patient has a pham catheter: No
Patient has a central line: No
[2024-07-08 15:05] VITALS: BP 119/73
[2024-07-08] MEDS: 0.45%NACL 1000 IV (15:10)
[2024-07-08] MEDS: HEPARIN SC ×2 (20:14→23:41)
[2024-07-08] MEDS: HEPARIN 5000 UNITS SC (20:52)
[2024-07-08 23:00] VITALS: BP 130/68
[2024-07-09] MEDS: TYLENOL 650 MG PO ×2 (03:44→15:09)
[2024-07-09] MEDS: 0.45%NACL 1000 IV ×2 (04:25→23:52)
[2024-07-09 06:00] VITALS: BMI 22.2
[2024-07-09 06:04] LABS: Hematocrit 41.9 % (37.0-47.0); Hemoglobin 14.1 g/dL (12.0-16.0); Mean Corp Hgb Conc. 33.7 g/dL (33.0-37.0); Mean Corpuscular Hgb 30.6 pg (27.0-31.0); Mean Corpuscular Volume 90.9 fL (81.0-99.0); Mean Platelet Volume 11.6 fL (7.4-10.4); Platelet Count 182 10^3/uL (130-400); Red Blood Cell Count 4.61 10^6/uL (4.20-5.40); Red Cell Dist. Width 13.8 % (11.5-14.5); White Blood Cell Count 11.8 10^3/uL (4.8-10.8)
[2024-07-09 06:36] LABS: Blood Urea Nitrogen 22 mg/dl (7-17); Carbon Dioxide 24 mmol/L (22-30); Chloride 109 mmol/L (98-107); Estimated Creatinine Clearance 19 ml/min; Glucose 95 mg/dl (70-99); Potassium 4.5 mmol/L (3.5-5.1); Sodium 140 mmol/L (135-145); eGFR 30.64
[2024-07-09 07:20] VITALS: BP 137/77
[2024-07-09] MEDS: CARDIZEM CD 240 MG PO (09:56)
[2024-07-09] MEDS: HEPARIN 5000 UNITS SC ×3 (09:56→23:45)
--- NOTE | 2024-07-09 12:06 | W.PN.GS2 ---
Addendum entered and electronically signed by Ty Newell MD 07/09/24 15:52:
I saw and examined the patient.
The PEELED POTATO INSPECTOR's note was reviewed and I agree with the note.
�N.p.o. with sips until recovery of bowel function
� Hold Eliquis, continue SQH
� Follow-up UA for urinary frequency
Original Note:
Today's Communication / Plan
-
NPO with sips
Assessment / Plan
-
89 yo female with a h/o AF on renal dosed Eliquis (LD 07/06) presenting with SBO secondary to incarcerated right inguinal hernia with recurrent left inguinal hernia present as well
POD #2 Robotic right incarcerated hernia repair with mesh and robotic recurrent left inguinal hernia repair with mesh
Afebrile, VSS
H/H stable, no leukocytosis
Await bowel recovery
--NPO with sips of clears until passing flatus
--Continue IVF until diet able to be advanced
--Analgesics prn, no NSAIDs given CKD
--Hospitalist following for medical management, appreciate recs
--OOB/Ambulate
--Send UA
--Continue to hold PO AC until good bowel recovery
--VTE ppx with sq heparin
Subjective Data
-
Date of Service: July 09, 2024
Patient seen and examined at bedside with Dr. Newell. Denies n/v. Not passing flatus. Some soreness to abd but only with activity. Trying to avoid narcotics. Notes she is voiding frequently.
Objective Data
-
Intake and Output
07/08/24 07/09/24 07/10/24
06:59 06:59 06:59
Intake Total 1050 / 1050 1365 / 1365
Output Total 550 / 550 490 / 490
Balance 500 / 500 875 / 875
Intake:
Oral fluids 560 / 560
IV fluids (Total) 1050 / 1050 805 / 805
D5LR 150 / 150
Output:
Urine, Voided 550 / 550 490 / 490
Other:
Number of approximated SMALL 1
amounts of urine
Number of approximated MODERATE 4 1 1
amounts of urine
Vital Signs
Temp Pulse Resp BP Pulse Ox
98.1 F 75 14 137/77 93
07/09/24 07:20 07/09/24 07:20 07/09/24 07:20 07/09/24 07:20 07/09/24 07:20
Lab Results
07/09/24 04:52
07/09/24 04:52
Calcium 9.0 mg/dl (8.4-10.2) 07/09/24 04:52
Total Bilirubin 0.8 mg/dl (0.2-1.3) 07/07/24 01:07
AST 12 U/L (14-36) L 07/07/24 01:07
ALT < 10 U/L (0-35) 07/07/24 01:07
Alkaline Phosphatase 50 U/L (38-126) 07/07/24 01:07
Total Protein 4.4 g/dl (6.3-8.2) L 07/07/24 01:07
Albumin 2.6 g/dl (3.5-5.0) L 07/07/24 01:07
Physical Exam
-
NAD
ABD soft, NT, mod distention
Incisions without erythema, intact glue
Patient has a pham catheter: No
Patient has a central line: No
--- NOTE | 2024-07-09 12:20 | W.PN.HOSP.TC ---
Today's Communication/Plan
-
Assessment / Plan
Assessment / Plan
NAD
Scleral Anicteric
MMM
No JVD
CTABL
IRR, S1/S2
Soft, ND, BS+
Warm, Dry
AAOx3
Calm
SBO with incarcerated right inguinal hernia and recurrent left inguinal hernia
S/p robotic right incarcerated inguinal hernia repair with mesh and robotic recurrent left inguinal hernia repair with mesh on 07/07/94
Follow-up surgery recommendations
Clear liquid diet
Advance diet per surgery recommendations
Provide incentive spirometer 10 times per an hour
Hyperkalemia, improved now 4.5 on 07/09
Not hemolyzed however strange to increase by 2points
Repeat stat BMP
Monitor on telemetry
If >5.5 will obtain EKG if noted hyperK changes then will temporize along with CaGluc to stabilize cardiac membrane.
Will trial Kaliuresis. Would avoid Lokelma in the setting of postop intra-abdominal surgery
EKG ordered
Afib - Permnant
Cardizem po along with eliquis (held by surgery) resume once cleared by surgery to resume
CKD stage 3b, current Cr better then baseline
Avoid nephrotoxins
Monitor uop
avoid hypotension
PT/OT rehab vs home pt with supervision
Family would like rehab
Anticipated Discharge: > 48 hours
Subjective/Interval History
-
Date of Service: July 09, 2024
Seen and examined. No acute overnight event. No new complaints.
Objective Data
-
Labs:
Laboratory Results
07/09/24
04:52
WBC 11.8 H
Hgb 14.1
Hct 41.9
Plt Count 182
Sodium 140
Potassium 4.5
Chloride 109 H
Carbon Dioxide 24
BUN 22 H
Creatinine 1.6 H
Glucose 95
Calcium 9.0
Vital Signs:
Vital Signs
Temp Pulse Resp BP Pulse Ox
98.1 F 75 14 137/77 93
07/09/24 07:20 07/09/24 07:20 07/09/24 07:20 07/09/24 07:20 07/09/24 07:20
I&O
07/08/24 07/09/24 07/10/24
06:59 06:59 06:59
Intake Total 1050 / 1050 1365 / 1365
Output Total 550 / 550 490 / 490
Balance 500 / 500 875 / 875
[2024-07-09 13:12] LABS: Urine Albumin Negative (Neg - Trace); Urine Bilirubin Negative (Negative); Urine Character Clear (Clear); Urine Color Yellow; Urine Glucose Negative (Negative); Urine Ketone Negative (Negative); Urine Leukocyte Negative (Negative); Urine Nitrite Negative (Negative); Urine Occult Blood Negative (Negative); Urine Specific Gravity 1.005 (<1.030); Urine Urobilinogen Negative (Neg - 1+)
[2024-07-09 15:20] VITALS: BP 144/84
[2024-07-09 22:39] VITALS: BP 159/99
[2024-07-10 05:28] VITALS: BMI 21.8
[2024-07-10 07:03] VITALS: BP 144/95
[2024-07-10 07:44] LABS: Hematocrit 44.3 % (37.0-47.0); Hemoglobin 14.6 g/dL (12.0-16.0); Mean Corpuscular Hgb 29.9 pg (27.0-31.0); Mean Corpuscular Volume 90.6 fL (81.0-99.0); Mean Platelet Volume 11.2 fL (7.4-10.4); Platelet Count 169 10^3/uL (130-400); Red Blood Cell Count 4.89 10^6/uL (4.20-5.40); Red Cell Dist. Width 13.6 % (11.5-14.5); White Blood Cell Count 9.7 10^3/uL (4.8-10.8)
[2024-07-10 08:17] LABS: Blood Urea Nitrogen 23 mg/dl (7-17); Calcium 8.9 mg/dl (8.4-10.2); Carbon Dioxide 23 mmol/L (22-30); Chloride 108 mmol/L (98-107); Estimated Creatinine Clearance 21 ml/min; Glucose 56 mg/dl (70-99); Potassium 4.1 mmol/L (3.5-5.1); Sodium 138 mmol/L (135-145)
[2024-07-10 09:09] VITALS: BP 133/82; BP 141/83; PULSE 87; O2SAT 95
[2024-07-10] MEDS: HEPARIN 5000 UNITS SC ×3 (09:47→23:42)
[2024-07-10] MEDS: CARDIZEM CD 240 MG PO (09:48)
--- NOTE | 2024-07-10 09:49 | W.PN.GS2 ---
Addendum entered and electronically signed by Gorge Marx MD 07/10/24 15:17:
I saw and examined the patient independently.
The resident's documentation was reviewed and I agree with the note, assessment and plan except where noted below.
Comment: This is an 89-year-old female with a history of prior open left inguinal hernia repair with mesh who presents with abdominal pain nausea vomiting and found to have a small bowel obstruction secondary to an incarcerated right inguinal hernia
status post POD #3 robotic incarcerated right inguinal hernia repair with mesh as well as robotic recurrent left inguinal hernia repair with mesh. Overall doing well, expected postoperative course.
Clears.
Pain control
Continue IV fluids.
Surgery will continue to follow.
Original Note:
Today's Communication / Plan
-
- Monitor patients WBC count, BMP, vitals, surgical incisions, and advance diet as tolerated
Assessment / Plan
-
89 yo female with a h/o AF on renal dosed Eliquis (LD 07/06) presenting with SBO secondary to incarcerated right inguinal hernia with recurrent left inguinal hernia present as well.
POD #3 Robotic right incarcerated hernia repair with mesh and robotic recurrent left inguinal hernia repair with mesh
Afebrile, VSS
H/H stable, no leukocytosis
Await bowel recovery
-Upgraded diet to clear liquids after patient has passed flatus
-Continue IVF for now and check to see if patient is tolerating fluids, then d/c
-Analgesics prn, d/c'd oxycodone and changed it to Tramadol 25 mg Q12h , no NSAIDs given CKD
-OOB/Ambulate, PT/OT is following
-Continue to hold PO AC until good bowel recovery
-VTE ppx with sq heparin
Hyperkalemia:
-Improved now 4.1 today, resolved
-Continue to monitor for hyperkalemia due to recent increase by 2 points from 3.3 on 07/07 to 5.2 on 07/08 and If >5.5, obtain EKG if noted changes then will use CaGluc to stabilize cardiac membrane.
-Hospitalist team suggests avoiding Lokelma in the setting of postop intra-abdominal surgery
Permanent Atrial fibrillation:
- continue Cardizem
- Eliquis to be continued only after good bowel recovery
Acute on chronic kidney disease stage IIIb:
- Creatinine is 1.5
- Her baseline is usually 1.3-1.5
- Monitor creatinine and BUN
- Monitor electrolytes and observe for hyper/hypo-kalemia, hypo-/hypernatremia
- Continue IV fluids to help maintain intravascular volume
- Avoid all nephrotoxic drugs
- renally dose medications
PT/OT rehab vs home pt with supervision, PT/OT will continue to follow
Subjective Data
-
Date of Service: July 10, 2024
Patient is POD #3 for a robotic right incarcerated hernia repair with mesh and robotic recurrent left and lateral hernia repair with mesh
Patient is feeling pain on movement to her right side, pain is rated as a 5/10, adequately controlled on tylenol today. She has had 3 episodes of flatus this morning, and has gone to the bathroom to urinate every 1 hour.
Urine analysis ordered for urinary frequency and came back normal.
Objective Data
-
Intake and Output
07/09/24 07/10/24 07/11/24
06:59 06:59 06:59
Intake Total 1365 / 1365 610 / 610
Output Total 490 / 490 700 / 700
Balance 875 / 875 -90 / -90
Intake:
Oral fluids 560 / 560 120 / 120
IV fluids (Total) 805 / 805 490 / 490
Output:
Urine, Voided 490 / 490 700 / 700
Other:
Number of approximated SMALL 1
amounts of urine
Number of approximated MODERATE 1 1
amounts of urine
Vital Signs
Temp Pulse Resp BP Pulse Ox
97.7 F 89 16 144/95 97
07/10/24 07:03 07/10/24 07:03 07/10/24 07:03 07/10/24 07:03 07/10/24 07:03
Lab Results
07/10/24 07:26
07/10/24 07:26
Calcium 8.9 mg/dl (8.4-10.2) 07/10/24 07:26
Total Bilirubin 0.8 mg/dl (0.2-1.3) 07/07/24 01:07
AST 12 U/L (14-36) L 07/07/24 01:07
ALT < 10 U/L (0-35) 07/07/24 01:07
Alkaline Phosphatase 50 U/L (38-126) 07/07/24 01:07
Total Protein 4.4 g/dl (6.3-8.2) L 07/07/24 01:07
Albumin 2.6 g/dl (3.5-5.0) L 07/07/24 01:07
Physical Exam
-
abdominal examination-abdomen is soft, slightly distended, incisions from laparoscopic surgery are without erythema, swelling, bloody/purulent discharge
[2024-07-10 11:18] VITALS: BMI 22.2
--- NOTE | 2024-07-10 12:27 | W.PN.HOSP.TC ---
Today's Communication/Plan
-
Advance diet as tolerated per surgery
Start Eliquis when okay from surgery
DC planning
Assessment / Plan
Assessment / Plan
SBO with incarcerated right inguinal hernia and recurrent left inguinal hernia
S/p robotic right incarcerated inguinal hernia repair with mesh and robotic recurrent left inguinal hernia repair with mesh on 07/07/94
Follow-up surgery recommendations
Clear liquid diet
Advance diet per surgery recommendations
Provide incentive spirometer 10 times per an hour
Hyperkalemia, improved now 4.1
Not hemolyzed however strange to increase by 2points
Afib - Permanent - rate controlled
Cardizem po along with eliquis (held by surgery) resume once cleared by surgery to resume
CKD stage 3b, current Cr better then baseline
Avoid nephrotoxins
Monitor uop
avoid hypotension
PT/OT rehab vs home pt with supervision
Family would like rehab
Anticipated Discharge: Within 24 hours
Subjective/Interval History
-
Date of Service: July 10, 2024
Feeling improved. No abdominal pain. Denies any nausea. Currently on liquid diet.
Denies shortness of breath, chest pain or palpitations.
Denies dizziness.
Objective Data
-
Labs:
Laboratory Results
07/10/24
07:26
WBC 9.7
Hgb 14.6
Hct 44.3
Plt Count 169
Sodium 138
Potassium 4.1
Chloride 108 H
Carbon Dioxide 23
BUN 23 H
Creatinine 1.5 H
Glucose 56 L
Calcium 8.9
Vital Signs:
Vital Signs
Temp Pulse Resp BP Pulse Ox
97.7 F 89 16 144/95 97
07/10/24 07:03 07/10/24 07:03 07/10/24 07:03 07/10/24 07:03 07/10/24 07:03
I&O
07/09/24 07/10/24 07/11/24
06:59 06:59 06:59
Intake Total 1365 / 1365 610 / 610
Output Total 490 / 490 700 / 700
Balance 875 / 875 -90 / -90
Physical Exam
-
General: No Apparent Distress
Respiratory: Clear to Auscultation
Cardiac: S1/S2 and Irregular Rhythm; Negative Tachycardic
GI: Soft
Neuro: AO x 3
Psych: Calm; Negative Confused
Data Reviewed
-
Labs: Labs Reviewed by me
--- NOTE | 2024-07-10 14:44 | OR.RPT ---
Operative Report
Operative Report
Patient Name: Jessika Zhang
: 1935
Date of Operation: 07/07/2024
Preoperative Diagnosis: Incarcerated right inguinal hernia, recurrent left inguinal hernia, small bowel obstruction
Postoperative Diagnosis: Same
Procedure(s):
1. Robotic right incarcerated inguinal hernia repair with mesh.
2. Robotic recurrent left inguinal hernia repair with mesh.
Surgeon(s):
Dr. Marx
Shipping Room Supervisor(s):
SUSANA Nina
Anesthesia: General
Estimated Blood Loss: 11 cc
Urine Output: None
Drains/Lines/Implants: Large 3D Max Bard mid weight uncoated polypropylene mesh x 2
Specimens: None
Indication for surgery: This is an 89-year-old female with a history of a prior open left inguinal hernia repair with mesh presents to our hospital with abdominal pain, nausea, vomiting, found to have small bowel obstruction secondary to an
incarcerated right inguinal hernia and noted as well to have a recurrent left inguinal hernia. Following review of therapeutic options they have elected to undergo a minimally invasive repair.
Operative Findings:
Large bilateral inguinal hernias, right greater than left. The right containing small bowel adhesed to the peritoneum. A complete preperitoneal flap was developed from the left to the right side. Small working space. Critical view of the MPO was
achieved bilaterally. On the left side the patient had a recurrent left indirect inguinal hernia, no direct or femoral components. There was a large cord lipoma that was reduced and resected. On the right side the patient had a large right
indirect inguinal hernia, a small femoral component, no direct component. Here also there was a large cord lipoma that was reduced and resected. Large Bard soft 3D max uncoated polypropylene mesh was used to reinforce the space and secured at
coopers, superior medially and superior laterally. Significant amount of subcu crepitus due to CO2 insufflation.
Details of the operation:
The patient was brought to the Operating Room and placed in the supine position with the arms tucked. IV antibiotics were infused and Venodyne stockings placed. Following uneventful induction of general endotracheal anesthesia, an orogastric tube
was placed. The abdomen was prepped and draped in the usual sterile fashion. The abdomen was entered using a Veress technique which required 1 pass, pneumoperitoneum to 15 mmHg was obtained without difficulty. An 8mm trochar was passed through the
abdominal wall roughly 20 cm cephalad to the inguinal canal. This was somewhat challenging as she had a small body habitus so our ports and working space was limited. We then confirmed that no inadvertent injury was made while passing the trocar
or Veress needle. We then placed two additional 8 mm ports in the left upper and right upper quadrants. We then docked the robot with a Prograsper in the left hand port and monopolar scissors in the right. Large bilateral indirect defects were
immediately noted. There was bowel creeping into the right canal which could not be reduced as it appeared adherent to the peritoneal lining. A 4 x 4 Ray-Lexus was inserted to help protect the bowel from our dissection from above. We then began by
creating a flap at the level of the ASIS laterally working our way medially to the medial umbilical fold. We started this on the right side and connected this all the way to the left. Staying onto the peritoneum we were able to circumferentially
dissect around the hernia sac and and peel it off of the underlying structures. The round ligaments were identified and divided bilaterally. Medially we identified the midline pubis as well as Rusty's ligament and ensured to dissect 2 cm below
the pubic rim over the bladder. After exposure of the entire myopectineal orifice on the right side we identified and reduced: A large right indirect inguinal hernia with a small femoral component and no direct component. There was a large cord
lipoma that was reduced and resected. We then repeated the same dissection on the left and again after achieving the critical view of the MPO identified a large recurrent left indirect hernia as well as a large cord lipoma that was reduced and
resected.
We then fixated a large 3D max mesh x2 with a 2-0 Vicryl stitch at coopers medially and superior laterally as well as together in the midline. The flap was then closed with a running 2-0 barbed monocryl suture ensuring that the tail was cut flush
with the medial fat pad so that no barbs were exposed. During the closure of the flap an Angiocath was inserted but no Marcaine was instilled. The area in the flap cavity was then evacuated of air confirming that the mesh was flush and there were
no folds. No rents in the peritoneum were noted. The Ray-Lexus as well as the cord lipomas were removed. All needles and instruments were then removed and the robot was undocked. The abdomen was then desufflated, and pneumoperitoneum evacuated.
All skin sites were then closed with 4-0 Monocryl followed by Dermabond. The patient was noted to have a significant amount of subcu crepitus extending all the way to the neck and face. Counts were correct and overall, the patient tolerated the
procedure well and was taken to the Recovery Room postoperatively in stable condition.
I was the attending physician and performed the procedure with assistance of the MEDIA SALES CONSULTANT above. I was present for all portions of the case, excluding skin closure.
Gorge Marx MD
--- NOTE | 2024-07-10 15:18 | CM ---
CM following re: discharge planning.
Reviewed pt's chart, met with pt.
Pt and OT evaluations noted - SNF level of care recommended.
Pt is aware, expressed her agreement and pt requested [facility]. A referral to [facility] made this morning. Per [facility] hospitalist medical director, pt will be accepted for admission to [facility] when medically stable.
D/C plan: [facility] when medically stbale.
CM will follow to assist pt with discharge to [facility].
[2024-07-10 15:35] VITALS: BP 135/77
[2024-07-10] MEDS: 0.45%NACL 1000 IV (15:42)
--- NOTE | 2024-07-10 17:24 | W.PN.UPDATE ---
Update Note
Progress Note Update
-Upgraded Patient to full liquid diet for dinner
-Patient on clears for 6 hours with no nausea, vomiting, distention
- Patient is passing flatus and bowel sounds heard on auscultation
[2024-07-10 23:20] VITALS: BP 150/84
[2024-07-11] MEDS: 0.45%NACL 1000 IV (03:28)
[2024-07-11 06:00] VITALS: BMI 21.4
[2024-07-11 07:25] VITALS: BP 171/99
[2024-07-11] MEDS: CARDIZEM CD 240 MG PO (08:12)
[2024-07-11] MEDS: HEPARIN 5000 UNITS SC (08:13)
--- NOTE | 2024-07-11 08:24 | PN.CDI ---
CDI
- -
CDI:
Physician Documentation Request
Admit Date: 07/07/24 04:13
Dear Doctor Indy,
Patient admitted with small bowel obstruction.
07/09 General Surgery Note, ' ....SBO secondary to incarcerated right inguinal hernia with recurrent left inguinal hernia present as well.'
Please provide in your note the extent of the documented small bowel obstruction:
Complete
Partial
Other
Use of terms such as suspected, likely, concern for, or probable (associated with a specific diagnosis that is being evaluated, monitored, or treated as if it exists) are acceptable and can be coded in the inpatient setting, when documented at the
time of discharge.
Thank you,
Kathya TAVAREZ,RN,CCDS
CDI Specialist
Available via tiger text
Please use your independent medical judgment in providing your response.
[2024-07-11 08:28] VITALS: BP 152/90
--- NOTE | 2024-07-11 08:31 | W.PN.GS2 ---
Addendum entered and electronically signed by Gorge Marx MD 07/11/24 08:42:
For CDI purposes:
Patient found to have 'a complete small bowel obstruction secondary to an incarcerated right inguinal hernia.'
Original Note:
Today's Communication / Plan
-
Falls
Bowel regimen
Okay for home therapeutic anticoagulation per primary
Dispo planning
Assessment / Plan
-
89 yo female with a h/o AF on renal dosed Eliquis (LD 07/06) presenting with SBO secondary to incarcerated right inguinal hernia with recurrent left inguinal hernia present as well. POD #4 Robotic right incarcerated hernia repair with mesh and robotic
recurrent left inguinal hernia repair with mesh. Doing well, expected ileus now resolving.
Okay for fulls, will advance to a regular diet later this afternoon.
Will start bowel regimen
Okay for therapeutic anticoagulation per primary.
Appreciate PT OT recs rehab versus home.
Surgical continue to follow, DCI instructions updated
Time Spent
Total Time Spent with Patient (in minutes): 20
Subjective Data
-
Date of Service: July 11, 2024
Interval Events:
No acute events overnight. Slept well. Pain Controlled. Denies Nausea/Vomiting, +bowel function, no bowel movements. Tolerating clears diet.
Objective Data
-
Intake and Output
07/10/24 07/11/24 07/12/24
06:59 06:59 06:59
Intake Total 610 / 610 1885 / 1885 480 / 480
Output Total 700 / 700 250 / 250
Balance -90 / -90 1635 / 1635 480 / 480
Intake:
Oral fluids 120 / 120 1045 / 1045 480 / 480
IV fluids (Total) 490 / 490 840 / 840
Output:
Urine, Voided 700 / 700 250 / 250
Other:
Number of approximated MODERATE 1 3 2
amounts of urine
Vital Signs
Temp Pulse Resp BP Pulse Ox
97.9 F 93 17 152/90 98
07/11/24 07:25 07/11/24 08:28 07/11/24 07:25 07/11/24 08:28 07/11/24 07:25
Lab Results
07/10/24 07:26
07/10/24 07:26
Calcium 8.9 mg/dl (8.4-10.2) 07/10/24 07:26
Total Bilirubin 0.8 mg/dl (0.2-1.3) 07/07/24 01:07
AST 12 U/L (14-36) L 07/07/24 01:07
ALT < 10 U/L (0-35) 07/07/24 01:07
Alkaline Phosphatase 50 U/L (38-126) 07/07/24 01:07
Total Protein 4.4 g/dl (6.3-8.2) L 07/07/24 01:07
Albumin 2.6 g/dl (3.5-5.0) L 07/07/24 01:07
Physical Exam
-
GENERAL/NEURO: Awake, Alert, no distress
CHEST: Unlabored breathing on RA
ABDOMEN: Soft, mildly tender, mildly distended. Incisions clean dry and intact.
Patient has a pham catheter: No
Patient has a central line: No
--- NOTE | 2024-07-11 08:58 | W.PN.HOSP.TC ---
Addendum entered and electronically signed by Dandre Mead MD 07/11/24 09:34:
Discussed with Dr. Lin. Risk and benefit of CT angiogram with chronic kidney disease stage IIIb. Since vision is only symptoms unsure if she has LVO. Recommend ultrasound instead as a suspicion for LVO is low.
Original Note:
Today's Communication/Plan
-
Stat CT head
Neurology consult
Hold Eliquis this morning till evaluation is complete
Diet per surgery
Assessment / Plan
Assessment / Plan
SBO with incarcerated right inguinal hernia and recurrent left inguinal hernia
S/p robotic right incarcerated inguinal hernia repair with mesh and robotic recurrent left inguinal hernia repair with mesh on 07/07/94
Follow-up surgery recommendations
Liquid diet-Advance diet per surgery recommendations
Provide incentive spirometer 10 times per an hour
Acute right eye blurriness with no other associated neurological symptoms or signs. External eye exam is okay. Extraocular movements intact. Corneal reflexes intact. Clinical concern evidence of acute stroke. Will get a stat CT head. She is
today cleared for Eliquis per surgery. Stat neurology consult.
Afib - Permanent - rate controlled
Continue with Cardizem
Resume Eliquis after stroke workup as above.
CKD stage 3b, current Cr better then baseline
Avoid nephrotoxins
Monitor uop
avoid hypotension
PT/OT rehab vs home pt with supervision
Family would like rehab
Discussed with neurology on-call Dr. Coreas who is going to see the patient urgently. Stat CT head requested. Hold Eliquis which was resumed by surgery today until evaluation/CT head is complete.
Discussed with RN.
Total time spent on today's encounter was 52 minutes which included time spent in counseling the patient/family regarding diagnosis and treatment plan as listed above, goals of care, and symptom management. Case was discussed with nursing staff,
specialists, and care coordinators/case management. All labs and imaging personally reviewed by me. Remainder the time spent in detailed review of previous records, lab data, imaging, and other medical provider documentation.
Anticipated Discharge: 24 - 48 hours
Subjective/Interval History
-
Date of Service: July 11, 2024
Called by RN at 8:30 AM for complaints of right eye blurriness.
Patient states that she got up maybe around 6:37 AM and then she noticed right eye blurriness. She had no issues going into sleep.
Right eye has completely blurriness both for far vision and near vision. It is not a complete loss of vision it is just blurry. Not sure if she has double vision. If not any particular visual jackson it is the whole I feels blurry. She does get
some discomfort in the eye. Feels something in it. Not itchy. Just annoying and feels blurry.
No headache.
No speech disturbances. No sensory symptoms in the lumps. No weakness in the limbs. No unsteadiness on the feet.
2 months ago she apparently in a complete loss of vision in the right eye. Had ophthalmology eval and the neurological eval. Apparently she had a positive MRI for stroke. No other workup has been as an outpatient. She has longstanding A-fib and
being on Eliquis for a long time and that was continued after.
No other episodes of stroke.
Denies any retinal issue or primary ophthalmic issue other than having had right eye cataract surgery.
Objective Data
-
Vital Signs:
Vital Signs
Temp Pulse Resp BP Pulse Ox
97.9 F 93 17 152/90 98
07/11/24 07:25 07/11/24 08:28 07/11/24 07:25 07/11/24 08:28 07/11/24 07:25
I&O
07/10/24 07/11/24 07/12/24
06:59 06:59 06:59
Intake Total 610 / 610 1885 / 1885 480 / 480
Output Total 700 / 700 250 / 250
Balance -90 / -90 1635 / 1635 480 / 480
Review of Systems
-
Respiratory: Denies Trouble Breathing
Cardiac: Denies Chest Pain
Abdomen/GI: Denies Abdominal Pain, Nausea or Vomiting
Neuro: Denies Dizzy
Physical Exam
-
General: No Apparent Distress
HEENT: Moist Mucous Membranes and Other (Patient could not read anything on her menu because of her blurriness.)
Respiratory: Clear to Auscultation
Cardiac: S1/S2 and Irregular Rhythm; Negative Tachycardic
GI: Soft and Nontender
Neuro: AO x 3, No Motor Deficits and Other (Pupils are equal and reactive. Extraocular movements intact without any palsy. She was able to see my regular finger and on gross visual field testing no deficit noted. Right eye may be slightly red
compared to left but cornea looks clear on gross exam); Negative Tremors, Slurred Speech or Facial Droop
Psych: Calm; Negative Confused
Data Reviewed
-
Labs: Labs Reviewed by me
--- NOTE | 2024-07-11 08:59 | CON.NEURO ---
Neuro Assessment/Plan
Assessment
Unusual story for a stroke. given monocular involvement, the problem would be before the optic chiasm; strokes such as CRAO are not generally described as painful/uncomfortable
check head CT
not a TNK candidate given duration of sx
Cre 1.5; will skip CTA as patient is not a thrombectomy candidate
Plan
will need to restart Eliquis when cleared by surgeon
check carotid ultrasound
hold off on MRI as she recently had one; not expected to change medical management
Consultation
Order
Date of Consultation: 07/11/24
Requesting Provider: Dandre Mead
Reason for Consult: vision loss
Subjective/Objective
Subjective Data
Date of Service: July 11, 2024
89 year old woman admitted for incarcerated abdominal hernia, s/p repair 4 days ago. was on Eliquis for afib, stopped for the surgery
this morning woke up with blurry vision right eye entire visual field. throughout the morning perhaps slight improvement. She also reports discomfort in the right eye, feels like something is in her eye. no facial droop, speech changes, weakness,
numbness
3 months ago episode of vision loss right eye x4 hours - eventually determined to be acute stroke on MRI done at [facility]. also found to have another prior stroke
Objective Data
Vital Signs
Temp Pulse Resp BP Pulse Ox
36.6 C 93 17 152/90 98
07/11/24 07:25 07/11/24 08:28 07/11/24 07:25 07/11/24 08:28 07/11/24 07:25
Lab Results
07/10/24 07:26
07/10/24 07:26
Sodium 138 mmol/L (135-145) 07/10/24 07:26
Potassium 4.1 mmol/L (3.5-5.1) 07/10/24 07:26
BUN 23 mg/dl (7-17) H 07/10/24 07:26
Glucose 56 mg/dl (70-99) L 07/10/24 07:26
Calcium 8.9 mg/dl (8.4-10.2) 07/10/24 07:26
Patient Allergies
lisinopril Allergy (Verified 07/07/24 00:57)
cough
pollen extracts Allergy (Verified 07/07/24 00:57)
SUMMER ALLERGIES-SNEEZING
Physical Exam
-
AAOx3 speech clear, language intact
Visual jackson full bilat, right eye at least count fingers all quadrants
face symmetric
full strength b/l UE/LE, no pronator drift
Medications
-
Active Medications
Generic Name Dose Route Start Last Admin
Trade Name Freq PRN Reason Stop Dose Admin
Acetaminophen 650 mg 07/07/24 04:18 07/09/24 15:09
Acetaminophen 325 Mg Tablet PO 08/04/24 04:17 650 mg
Q4HPRN PRN Administration
mild pain/MCGOVERN/temp> 100.4F
Apixaban 2.5 mg 07/11/24 08:45
Apixaban (Eliquis) 2.5 Mg Tablet PO 08/08/24 08:44
BID JUNI
Diltiazem HCl 240 mg 07/07/24 08:00 07/11/24 08:12
Diltiazem 240 Mg Extended Release (24 H) Capsule PO 08/04/24 07:59 240 mg
DAILY JUNI Administration
Morphine Sulfate 2 mg 07/07/24 04:18 07/07/24 08:25
Morphine 2 Mg/Ml Syringe IV 07/21/24 04:17 2 mg
Q4HPRN PRN Administration
severe pain
Ondansetron HCl 4 mg 07/07/24 04:18 07/07/24 10:50
Ondansetron 4 Mg/2 Ml Vial IV 08/04/24 04:17 4 mg
Q6HPRN PRN Administration
nausea and vomiting
Polyethylene Glycol 17 grams 07/11/24 09:00
Polyethylene Glycol Powder 17 Grams Packet PO 08/08/24 08:59
DAILY JUNI
Sodium Chloride 0 flush 07/07/24 04:00
Sodium Chloride 0.9% (Flush) Syringe IV 08/04/24 03:59
PER PROTOCOL JUNI
Tramadol HCl 25 mg 07/10/24 07:53
Tramadol Hcl 50 Mg Tablet PO 08/07/24 07:52
P61SFOH PRN
moderate pain
Home Medications
�Medication �Instructions �Recorded
cholecalciferol (vitamin D3) 25 1,000 units PO DAILY Supplement 01/11/15
mcg (1,000 unit) tablet
apixaban 2.5 mg tablet (Eliquis) 2.5 mg PO BID ##1 04/21/18
diltiazem HCl 240 mg 240 mg PO DAILY Blood pressure 11/07/20
capsule,extended release 24 hr
docusate sodium 100 mg capsule 100 mg PO DAILY 07/07/24
(Colace)
polyethylene glycol 3350 17 gram 17 g PO DAILY PRN constipation 07/07/24
oral powder packet (Miralax)
[2024-07-11] MEDS: ELIQUIS PO (09:00)
--- NOTE | 2024-07-11 10:52 | PTCARENOTE ---
Patient complaining to this RN during AM med pass and assessment of R eye blurriness that started when she woke up this AM; R eye red, patient states she has been rubbing it, states she has recent hx of stroke and blurry vision was first symptom. BP
this AM taken by tech 171/99 HR 78, recheck by this RN 152/90 HR 93 RUE, scheduled PO Cardizem administered, see APR. Neuro check by this RN WNL. MD made aware of patient's concerns, at bedside, neuro consult placed per MD, neuro at bedside; patient
ordered carotid US. R AC IV placed prior to scan. Patient's PO eliquis reordered per surgery; per MD, hold pending carotid US results. Patient transported down to carotid US, stated to this RN when back on floor from test that R eye blurriness has
improved. Patient standby assist OOB to chair, IVF infusing, results pending at this time.
[2024-07-11] MEDS: MIRALAX 17 GRAMS PO (12:17)
--- NOTE | 2024-07-11 14:06 | CM ---
CM following re: discharge planning.
Reviewed pt's chart, met with pt.
Pt and OT continue recommending SNF level of care.
Pt is aware, expressed her agreement and pt requested [facility].
Per [facility] risk management director, pt will be accepted for admission to [facility] when medically stable.
[facility] nursing report: [phone]
Discharge instructions fax: [phone]
D/C plan: [facility] when medically stable.
CM will follow to assist pt with discharge to [facility].
[2024-07-11 15:15] VITALS: BP 137/81
[2024-07-11 16:39] VITALS: BP 143/87; PULSE 70; O2SAT 96
--- NOTE | 2024-07-11 19:53 | PTCARENOTE ---
Patient stating R eye blurry vision has resolved throughout this RN's shift; R eye remaining red on assessment, patient states minor burning at times, PRN eye drops ordered per MD but patient denying need for them during this RN's shift. Patient
ambulatory in room/mckay with standby assist, ringing appropriately, no BM after ordered miralax per surgery but patient states passing gas. Diet advanced to regular per surgery for dinner, patient tolerated meal.
[2024-07-11] MEDS: ELIQUIS 2.5 MG PO (20:04)
[2024-07-11 23:15] VITALS: BP 166/96
[2024-07-12 07:35] VITALS: BP 89/72
[2024-07-12 08:59] VITALS: BP 110/74
[2024-07-12] MEDS: ELIQUIS 2.5 MG PO (09:02)
[2024-07-12] MEDS: MIRALAX 17 GRAMS PO (09:03)
[2024-07-12] MEDS: CARDIZEM CD 240 MG PO (09:06)
--- NOTE | 2024-07-12 10:49 | CM ---
Addendum entered by Heath Bourgeois 07/12/24 12:39:
Discharge order noted.
Both pt and her son Marin are aware, expressed their agreement with discharge. IMM reviewed, placed on chart, pt has a copy.
CM spoke to [facility] director broadcast and she confirmed that pt is accepted for admission today.
W/C van transport scheduled for 13:30 p.m. pt's son provided [facility] ambulance phone number [phone] to pay $145.00 fees. Pt's son expressed his agreement.
[facility] nursing report: [phone]
Discharge instructions fax: [phone]
D/C plan: [facility] today.
Original Note:
CM following re: discharge planning.
Reviewed pt's chart, met with pt.
Pt is POD #5 Robotic right incarcerated hernia repair with mesh and robotic recurrent left inguinal hernia repair with mesh, continue supportive care.
Pt and OT continue recommending SNF level of care.
Pt is aware, expressed her agreement and pt is aware that [facility] accepted her for a short term rehab.
Per [facility] director broadcast, pt will be accepted for admission to [facility] when medically stable.
[facility] nursing report: [phone]
Discharge instructions fax: [phone]
D/C plan: [facility] when medically stable.
CM will follow to assist pt with discharge to [facility].
--- NOTE | 2024-07-12 12:29 | W.PN.HOSP.TC ---
Today's Communication/Plan
-
dc
Assessment / Plan
Assessment / Plan
SBO with incarcerated right inguinal hernia and recurrent left inguinal hernia
S/p robotic right incarcerated inguinal hernia repair with mesh and robotic recurrent left inguinal hernia repair with mesh on 07/07/94
Tolerating diet and cleared for discharge by surgery.
Acute right eye blurriness with no other associated neurological symptoms or signs. Transient. Completely resolved. She had some burning sensation along with blurring of vision. Unclear etiology. CT of the head showed no evidence of acute
stroke. Carotid ultrasound showed no evidence of hemodynamically significant narrowing. Seen by neurology. Cleared for resumption of Eliquis. Will hold further workup.
Afib - Permanent - rate controlled
Continue with Cardizem
Resumed Eliquis .
CKD stage 3b, current Cr better then baseline
Avoid nephrotoxins
Monitor uop
avoid hypotension
PT/OT rehab vs home pt with supervision
Family would like rehab
Medically stable for DC today
More than 30 minutes spent in discharge including
Final examination of the patient
Summarizing hospital stay
Instructions for continuing care to all relevant caregivers
Preparation of discharge records, prescriptions, and referral forms
Total time spent (in minutes):32
Anticipated Discharge: Today
Subjective/Interval History
-
Date of Service: July 12, 2024
Completely resolved in the right eye vision issues. No more blurring. No more burning. Voices no specific complaints. No headache. No double vision. No speech problem. No limb weakness. No sensory symptoms in the extremities.
She is alert and oriented.
She is tolerating diet and cleared for discharge from surgical standpoint.
Objective Data
-
Vital Signs:
Vital Signs
Temp Pulse Resp BP Pulse Ox
97.8 F 88 16 131/81 95
07/12/24 07:35 07/12/24 09:06 07/12/24 07:35 07/12/24 09:06 07/12/24 10:12
I&O
07/11/24 07/12/24 07/13/24
06:59 06:59 06:59
Intake Total 1885 / 1882024 180 / 180
Output Total 250 / 250
Balance 1635 / 1635 2024 180 / 180
Review of Systems
-
Constitutional: Denies Fever
EENT: Denies Sore Throat
Respiratory: Denies Trouble Breathing
Cardiac: Denies Chest Pain
Neuro: Denies Dizzy
Physical Exam
-
Respiratory: Non Labored Respirations; Negative Accessory Resp Muscle Use
Cardiac: S1/S2 and Irregular Rhythm; Negative Tachycardic
GI: Soft and Nontender
Neuro: AO x 3, No Motor Deficits and Other (No nystagmus. No visual field defects today. No blurriness of vision -able to read the menu easily today); Negative Slurred Speech or Facial Droop
Psych: Calm; Negative Confused
Data Reviewed
-
Labs: Labs Reviewed by me
[2024-07-12 13:20] VITALS: BP 154/93
--- NOTE | 2024-07-12 15:32 | W.PN.GS2 ---
Today's Communication / Plan
-
DC to rehab
Assessment / Plan
-
89 yo female with a h/o AF on renal dosed Eliquis (LD 07/06) presenting with SBO secondary to incarcerated right inguinal hernia with recurrent left inguinal hernia present as well. POD #5 Robotic right incarcerated hernia repair with mesh and robotic
recurrent left inguinal hernia repair with mesh. Doing well, expected ileus now resolving.
Darian LRD
Cont start bowel regimen
Okay for therapeutic anticoagulation per primary.
Appreciate PT OT recs rehab versus home.
OK for ADC to rehab per pt preference from surg standpoint
Subjective Data
-
Date of Service: July 12, 2024
AFVSS, denies abd pain, passing flatus and BMs, darian PO
Objective Data
-
Intake and Output
07/11/24 07/12/24 07/13/24
06:59 06:59 06:59
Intake Total 1885 / 1885 2024 180 / 180
Output Total 250 / 250
Balance 1635 / 1635 2024 180 / 180
Intake:
Oral fluids 1045 / 1045 2024 180 / 180
IV fluids (Total) 840 / 840
Output:
Urine, Voided 250 / 250
Other:
Number of approximated MODERATE 3 3 1
amounts of urine
Vital Signs
Temp Pulse Resp BP Pulse Ox
98.6 F 89 18 154/93 98
07/12/24 13:20 07/12/24 13:20 07/12/24 13:20 07/12/24 13:20 07/12/24 13:20
Lab Results
07/10/24 07:26
07/10/24 07:26
Calcium 8.9 mg/dl (8.4-10.2) 07/10/24 07:26
Total Bilirubin 0.8 mg/dl (0.2-1.3) 07/07/24 01:07
AST 12 U/L (14-36) L 07/07/24 01:07
ALT < 10 U/L (0-35) 07/07/24 01:07
Alkaline Phosphatase 50 U/L (38-126) 07/07/24 01:07
Total Protein 4.4 g/dl (6.3-8.2) L 07/07/24 01:07
Albumin 2.6 g/dl (3.5-5.0) L 07/07/24 01:07
Physical Exam
-
Gen: NAD
Abd: soft, nt, nd, incisions cdi
: no groin swelling, bruising or ttp
Patient has a pham catheter: No
Patient has a central line: No
== END 2024-07-12 13:34 | DRG 351 ==
LOC: 2 SOUTH 04:13
PROVIDERS: Hospitalist; Registered Nurse; ADMITTING PHYSICIAN Internal Medicine; ATTENDING PHYSICIAN Internal Medicine; CONSULT PHYSICIAN Psychiatry & Neurology Clinical Neurophysiology; CONSULT PHYSICIAN Surgery; EMERGENCY PHYSICIAN Student in an Organized Health Care Education/Training Program; FAMILY PHYSICIAN Internal Medicine
PROC: 8E0W4CZ Robotic Assisted Procedure of Trunk Region, Percutaneous Endoscopic Approach (ICD-10-PCS; 2024-07-10)
PROC: 0YUA4JZ Supplement Bilateral Inguinal Region with Synthetic Substitute, Percutaneous Endoscopic Approach (ICD-10-PCS; 2024-07-10)
DX: K40.01 Bilateral inguinal hernia, with obstruction, without gangrene, recurrent (principal); I13.0 Hypertensive heart and chronic kidney disease with heart failure and stage 1 through stage 4 chronic kidney disease, or unspecified chronic kidney disease; I48.21 Permanent atrial fibrillation; I50.32 Chronic diastolic (congestive) heart failure; E78.00 Pure hypercholesterolemia, unspecified; Z79.01 Long term (current) use of anticoagulants; N18.32 Chronic kidney disease, stage 3b; K21.9 Gastro-esophageal reflux disease without esophagitis; Z96.653 Presence of artificial knee joint, bilateral; Z88.8 Allergy status to other drugs, medicaments and biological substances; Z66 Do not resuscitate; Z86.73 Personal history of transient ischemic attack (TIA), and cerebral infarction without residual deficits; Z90.710 Acquired absence of both cervix and uterus
CPT/HCPCS: 70450; 74177; 80048; 80053; 81003; 83605; 83690; 85025; 85027; 86850; 86900; 86901; 93005; 93880; 96374; 96375; 97116; 97162; 97167; 97530; 97535; 99285; C1781; Q9967

== ENCOUNTER 2024-09-27 09:10 | Emergency (ER) | payer MEDICARE, BC, SELFPAY ==
[2024-09-27 09:11] VITALS: BP 125/76
[2024-09-27 09:30] LABS: Hematocrit 44.8 % (37.0-47.0); Hemoglobin 15.0 g/dL (12.0-16.0); Mean Corp Hgb Conc. 33.5 g/dL (33.0-37.0); Mean Corpuscular Volume 90.5 fL (81.0-99.0); Nucleated Red Blood Cells % 0 %; Platelet Count 244 10^3/uL (130-400); Red Cell Dist. Width 14.2 % (11.5-14.5)
[2024-09-27 10:00] VITALS: BP 135/79
[2024-09-27 10:01] VITALS: BMI 21.1
--- NOTE | 2024-09-27 10:01 | ED.GENMED ---
History of Present Illness
General
Chief Complaint: Extremity Pain (non-traumatic)
Source: patient
Exam Limitations: none
Time Seen by Provider: 09/27/24 09:51
History of Present Illness
History of Present Illness:
89-year-old female presents complaining of bilateral left greater than right leg swelling intermittent but worsened over the past 2 days. No associated chest pain or shortness of breath. No fevers or chills. She is on 2-1/2 mg of Eliquis twice a
day. She took a Lasix yesterday and it seemed to help the swelling but this there is still pain to the left leg. No known injury. No fevers or chills. No other complaints
Past History
Past History
ED Past Medical History: Arrthythmia, CHF, GERD, HTN and Hypercholesterolemia
ED Past Surgical History: Gynecological and Other
Social History
Tobacco: Non-smoker
Alcohol: None
Personal:
Living: with family
Employment: Retired
Family History
Family History: Other (Noncontributory)
Phy Exam
Physical Exam
Physical Exam:
General: Well-appearing female no acute respiratory distress
HEENT: Normocephalic atraumatic
Heart: Regular rate and rhythm
Lungs: Clear no wheeze
Extremities: Mild pitting edema bilateral lower extremities
Skin: Erythema noted to the left leg posterior medially with tenderness
Vascular: 2+ DP pulse bilateral feet
Course
Orders/Labs/Results
Orders:
Orders
09/27/24 09:21
Complete Blood Count/With Diff Urgent
Comprehensive Metabolic Panel Urgent
Pro-BNP [NT-proBNP] Urgent
09/27/24 10:01
CR Chest - 2 Views Urgent
Comment:
Reason For Exam: sob
Venous Doppler Lwr Ext Bilat [US Periph Venous LOWER Ext Alvarez] Urgent
Comment:
Reason For Exam: swelling
09/27/24 12:21
Cephalexin Monohydrate [Keflex] 500 mg PO NOW STA
Abnormal Lab Results
09/27/24
09:21
MPV 10.6 H fL
(7.4-10.4)
Absolute Neuts (auto) 7.4 H 10^3/uL
(1.4-6.5)
Absolute Monos (auto) 0.7 H 10^3/uL
(0.1-0.6)
Neutrophils % 76.5 H %
(42.2-75.2)
Lymphocytes % 15.3 L %
(20.5-51.1)
BUN 33 H mg/dl
(7-17)
Creatinine 2.1 H mg/dL
(0.6-1.0)
Glucose 136 H mg/dl
(70-99)
Total Bilirubin 1.7 H mg/dl
(0.2-1.3)
09/27/24 09:21
09/27/24 09:21
Vital Signs
Initial and Last Documented VS:
Initial Vital Signs
Temp Pulse Resp BP Pulse Ox
98.0 F 82 18 125/76 98
09/27/24 09:11 09/27/24 09:11 09/27/24 09:11 09/27/24 09:11 09/27/24 09:11
Last Documented Vital Signs
Temp Pulse Resp BP Pulse Ox
98.0 F 63 13 135/79 97
09/27/24 09:11 09/27/24 10:45 09/27/24 10:45 09/27/24 10:00 09/27/24 10:30
MDM/Problems Addressed
Differential Diagnosis Includes:
Swelling and pain left greater than the right leg. Consider cellulitis versus DVT although unlikely as she is on Eliquis versus heart failure or fluid retention. Will check chest x-ray BNP and ultrasound.
*Pulse Oximetry
SaO2: 98
Oxygen Mode of Delivery: Room air
Patient hypoxic: no
*Critical Care Note
Total Time (30-74mins, 75-104mins- exclusive of procedures): Not Applicable
Update Note
Update Note:
US negative for DVT. BNP elevated but no respiratory distress and CXR negative.
Will have her take lasix for 3 more days and add keflex for cellulitis
No indication for admission
ED Attending Note
-
Portions of this chart may have been created with voice recognition software.� Occasional wrong word or��sound alike� substitutions may have occurred due to the inherent limitations of voice recognition software.
Discharge Plan
Departure
Patient Disposition: Home (Routine Discharge)
Date of Disposition: 09/27/24
Time of Disposition: 12:29
Patient with high blood pressure during this ER visit?: No
Discharge Problem:
Cellulitis
Instructions: Cellulitis (skin infection) in adults - ED discharge instructions
Prescriptions:
New
cephalexin 500 mg capsule
500 mg PO TID 7 Days Qty: 21 0RF
No Action
cholecalciferol (vitamin D3) 1,000 UNITS tablet
1,000 units PO DAILY
Eliquis 2.5 MG tablet
2.5 mg PO BID Qty: 1 0RF
Rx Instructions:
resume after 14 days post-op when INR <2
--stop Coumadin
diltiazem HCl 240 MG capsule,extended release 24hr
240 mg PO DAILY
polyethylene glycol 3350 [Miralax] 17 gram Powder In Packet
17 g PO DAILY PRN (Reason: constipation)
docusate sodium [Colace] 100 mg Capsule
100 mg PO DAILY
Refresh Classic (PF) 1.4-0.6 % Dropperette
1 drp RIGHT EYE QID PRN (Reason: dry eye(s)) Qty: 30 0RF
Referrals:
Tiffany Armenta MD [Family Provider, Internal Medicine]
Activity Restrictions/Additional Instructions:
Use Keflex as directed. Continue Lasix for the next 3 days. Return if worse otherwise follow-up with your doctor
Interventions
Interventions:
*Risk Screen - Suicide Last Done: 09/27/24 09:11
*General Assessment Last Done: 09/27/24 09:11
*Neglect/Abuse Screening Last Done: 09/27/24 10:03
*ED- Fall Risk Assessment Last Done: 09/27/24 10:01
*ED COVID-19 Vaccine History Last Done: 09/27/24 10:01
ED-Skin Assessment Last Done: 09/27/24 10:01
ED-Peripheral Vascular Assessment Last Done: 09/27/24 10:01
ED-Musculoskeletal Assessment Last Done: 09/27/24 10:01
Discharge Date and Time
Print Language: DANISH
[2024-09-27 10:03] LABS: ALT (SGPT) 13 U/L (0-35); AST (SGOT) 17 U/L (14-36); Albumin 4.6 g/dl (3.5-5.0); Alkaline Phosphatase 64 U/L (38-126); Blood Urea Nitrogen 33 mg/dl (7-17); Calcium 9.7 mg/dl (8.4-10.2); Carbon Dioxide 24 mmol/L (22-30); Chloride 107 mmol/L (98-107); Estimated Creatinine Clearance 14 ml/min; Glucose 136 mg/dl (70-99); Potassium 4.8 mmol/L (3.5-5.1); Sodium 141 mmol/L (135-145); Total Protein 6.8 g/dl (6.3-8.2); eGFR 22.11
[2024-09-27] MEDS: KEFLEX 500 MG PO (12:29)
[2024-09-27 12:30] VITALS: BP 114/72
== END 2024-09-27 12:38 | disposition home or self-care (01) ==
LOC: EMR 09:10
PROVIDERS: EMERGENCY PHYSICIAN Emergency Medicine; FAMILY PHYSICIAN Internal Medicine
DX: L03.116 Cellulitis of left lower limb (principal); L03.115 Cellulitis of right lower limb; E78.00 Pure hypercholesterolemia, unspecified; I11.0 Hypertensive heart disease with heart failure; I50.9 Heart failure, unspecified; Z79.01 Long term (current) use of anticoagulants
CPT/HCPCS: 99284; 71046; 80053; 83880; 85025; 93970

== ENCOUNTER 2024-09-30 07:06 | Emergency (ER) | payer MEDICARE, BC, SELFPAY ==
[2024-09-30 07:07] VITALS: BP 123/73
--- NOTE | 2024-09-30 07:32 | ED.GENMED ---
History of Present Illness
<Sandra Calle DO, Resident - Last Filed: 09/30/24 13:07>
General
Chief Complaint: Skin Problem
Source: patient
Exam Limitations: none
Time Seen by Provider: 09/30/24 07:14
Nursing documentation reviewed up to this point in time: agreed with
History of Present Illness
History of Present Illness:
Patient is an 89 year old female with PMH of a fib on , HTN presenting with pain and redness in b/l LE. Patient was recently seen in the ED on Wednesday for b/l LE edema and redness. At that time patient had US imagining which was negative,
and unremarkable blood work. Patient was started on Keflex and told to continue taking Lasix for 3 days. Patient has taken the antibiotic as prescribed, but did not take the lasix. Patient is complaining of worsening redness in both ankles, and
increased pain in the Achilles area and lower calves of both legs. Patient denies any more swelling. Patient states that the pain is limiting her movement, and she has been trying to sit with her legs up. Patient also states that she 'just doesn't
feel good.' Patient denies all other ROS.
Past History
<Sandra Calle DO, Resident - Last Filed: 09/30/24 13:07>
Past History
ED Past Medical History: Arrthythmia, CHF, GERD, HTN and Hypercholesterolemia
ED Past Surgical History: Gynecological and Other
Social History
Tobacco: Non-smoker
Alcohol: None
Personal:
Living: with family
Employment: Retired
Family History
Family History: Other (Noncontributory)
Review of Systems
<Sandra Calle DO, Resident - Last Filed: 09/30/24 13:07>
Review of Systems
Allergies reviewed?: Yes
All Other Systems: ROS reviewed and negative except as documented in HPI and ROS
Constitutional: Reports no symptoms
EENT: Reports no symptoms
Respiratory: Reports no symptoms
Cardiac: Reports no symptoms
ABD/GI: Reports no symptoms
: Reports no symptoms
Musculoskeletal: Reports no symptoms
Skin: Reports itching (b/l lower extremities) and rash (b/l lower extremities)
Neurological: Reports no symptoms
Endocrine: Reports no symptoms
Hematologic/Lymphatic: Reports no symptoms
Psychiatric: Reports no symptoms
Phy Exam
<Sandra Calle DO, Resident - Last Filed: 09/30/24 13:07>
General Physical Exam
General Presentation: well appearing and no apparent distress
General age: appears stated age
General Skin: warm and dry
General Habitus: elderly
General Mental: alert
General Hydration: appears well hydrated
Cardiovascular Exam
Cardiovascular Exam: normal peripheral pulses and irregularly irregular
Heart Sounds: normal
Pulmonary Exam
Pulmonary Exam: lungs clear, no respiratory distress, no crackles and no wheezing
Cough: non productive cough
Gastrointestinal Exam
Gastrointestinal Exam: normal bowel sounds, non tender and soft
Neurological Exam
Neurological Exam: alert and oriented x3
Musculoskeletal Exam
Musculoskeletal Exam: other (ankle and lower calf pain b/l)
Skin Exam
Skin Exam: redness (b/l shins and lower calves and ankles) and tenderness (right lower calf)
Psychiatric Exam
Psychiatric Exam: normal mood/affect
Course
<Sandra Calle DO, Resident - Last Filed: 09/30/24 13:07>
Orders/Labs/Results
Orders:
Orders
09/30/24 08:09
Basic Metabolic Panel Urgent
Complete Blood Count/With Diff Urgent
09/30/24 08:11
Acetaminophen [Tylenol] 1,000 mg PO NOW STA
09/30/24 08:50
Doxycycline [Vibramycin] 100 mg PO NOW STA
Abnormal Lab Results
09/30/24
08:09
Hct 47.7 H %
(37.0-47.0)
MCHC 32.5 L g/dL
(33.0-37.0)
MPV 10.9 H fL
(7.4-10.4)
Absolute Neuts (auto) 6.9 H 10^3/uL
(1.4-6.5)
Absolute Lymphs (auto) 0.7 L 10^3/uL
(1.2-3.4)
Absolute Monos (auto) 0.7 H 10^3/uL
(0.1-0.6)
Neutrophils % 80.2 H %
(42.2-75.2)
Lymphocytes % 8.7 L %
(20.5-51.1)
Chloride 108 H mmol/L
(98-107)
BUN 27 H mg/dl
(7-17)
Creatinine 1.7 H mg/dL
(0.6-1.0)
09/30/24 08:09
09/30/24 08:09
Vital Signs
Initial and Last Documented VS:
Initial Vital Signs
Temp Pulse Resp BP Pulse Ox
97.7 F 104 18 123/73 98
09/30/24 07:07 09/30/24 07:07 09/30/24 07:07 09/30/24 07:07 09/30/24 07:07
Last Documented Vital Signs
Temp Pulse Resp BP Pulse Ox
97.7 F 82 18 118/72 97
09/30/24 07:07 09/30/24 09:20 09/30/24 09:20 09/30/24 09:20 09/30/24 09:20
<Domo Mitchell, DO - Last Filed: 09/30/24 07:50>
Orders/Labs/Results
Orders:
Orders
09/30/24 08:09
Basic Metabolic Panel Urgent
Complete Blood Count/With Diff Urgent
09/30/24 08:11
Acetaminophen [Tylenol] 1,000 mg PO NOW STA
09/30/24 08:50
Doxycycline [Vibramycin] 100 mg PO NOW STA
Abnormal Lab Results
09/30/24
08:09
Hct 47.7 H %
(37.0-47.0)
MCHC 32.5 L g/dL
(33.0-37.0)
MPV 10.9 H fL
(7.4-10.4)
Absolute Neuts (auto) 6.9 H 10^3/uL
(1.4-6.5)
Absolute Lymphs (auto) 0.7 L 10^3/uL
(1.2-3.4)
Absolute Monos (auto) 0.7 H 10^3/uL
(0.1-0.6)
Neutrophils % 80.2 H %
(42.2-75.2)
Lymphocytes % 8.7 L %
(20.5-51.1)
Chloride 108 H mmol/L
(98-107)
BUN 27 H mg/dl
(7-17)
Creatinine 1.7 H mg/dL
(0.6-1.0)
09/30/24 08:09
09/30/24 08:09
Vital Signs
Initial and Last Documented VS:
Initial Vital Signs
Temp Pulse Resp BP Pulse Ox
97.7 F 104 18 123/73 98
09/30/24 07:07 09/30/24 07:07 09/30/24 07:07 09/30/24 07:07 09/30/24 07:07
Last Documented Vital Signs
Temp Pulse Resp BP Pulse Ox
97.7 F 82 18 118/72 97
09/30/24 07:07 09/30/24 09:20 09/30/24 09:20 09/30/24 09:20 09/30/24 09:20
<Sandra Calle DO, Resident - Last Filed: 09/30/24 13:07>
MDM/Problems Addressed
Differential Diagnosis Includes:
Cellulitis
MDM/Problems Addressed:
Repeat labs normal. White blood cell count 8.5. Started patient on doxycycline 100 mg, stopped Keflex.
<Sandra Calle DO, Resident - Last Filed: 09/30/24 13:07>
*Pulse Oximetry
SaO2: 98
Oxygen Mode of Delivery: Room air
Patient hypoxic: no
*Critical Care Note
Total Time (30-74mins, 75-104mins- exclusive of procedures): Not Applicable
Data Reviewed
Review of Other/Old Records Reveals: Labs and Discharge Summary
Source: records
ED Attending Note
<Sandra Calle DO, Resident - Last Filed: 09/30/24 13:07>
-
Portions of this chart may have been created with voice recognition software.� Occasional wrong word or��sound alike� substitutions may have occurred due to the inherent limitations of voice recognition software.
<Domo Mitchell DO - Last Filed: 09/30/24 07:50>
ED Attending Note
Patient seen and examined by attending physician: Yes
I performed a history and physical exam of patient and discussed management with resident, I reviewed resident's note and agree with documented findings and plan of care.: Yes
ED Attending Note:
I evaluated the patient at bedside. 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 She takes Eliquis. She had ultrasound imaging the other day that showed no evidence of DVT bilaterally. She does have ongoing
pain/worsening pain associated with erythema to the bilateral distal lower extremities. Her white count the other day was 9.7. Will repeat labs today. She has strong DP pulses bilaterally.
Discharge Plan
Departure
Patient Disposition: Home (Routine Discharge)
Date of Disposition: 09/30/24
Time of Disposition: 08:51
Patient with high blood pressure during this ER visit?: Yes
Discharge Problem:
Cellulitis
Instructions: Cellulitis (Skin Infection), Adult (DC), BLOOD PRESSURE
Prescriptions:
New
doxycycline hyclate 100 mg tablet
100 mg PO BID Qty: 14 0RF
No Action
cholecalciferol (vitamin D3) 1,000 UNITS tablet
1,000 units PO DAILY
Eliquis 2.5 MG tablet
2.5 mg PO BID Qty: 1 0RF
Rx Instructions:
resume after 14 days post-op when INR <2
--stop Coumadin
diltiazem HCl 240 MG capsule,extended release 24hr
240 mg PO DAILY
polyethylene glycol 3350 [Miralax] 17 gram Powder In Packet
17 g PO DAILY PRN (Reason: constipation)
docusate sodium [Colace] 100 mg Capsule
100 mg PO DAILY
Refresh Classic (PF) 1.4-0.6 % Dropperette
1 drp RIGHT EYE QID PRN (Reason: dry eye(s)) Qty: 30 0RF
cephalexin 500 mg capsule
500 mg PO TID 7 Days Qty: 21 0RF
Referrals:
UNKNOWN,NO INTERVIEW [Family Provider]
Activity Restrictions/Additional Instructions:
Next dose of antibiotic tonight. Stop Keflex. Follow up with Primary Care Doctor.
Interventions
Interventions:
*Risk Screen - Suicide Last Done: 09/30/24 07:07
*General Assessment Last Done: 09/30/24 07:07
*Neglect/Abuse Screening Last Done: 09/30/24 07:07
*ED- Fall Risk Assessment Last Done: 09/30/24 08:00
*Nursing Disposition Last Done: 09/30/24 09:40
ED-Skin Assessment Last Done: 09/30/24 09:40
Discharge Date and Time
Discharge Date/Time: 09/30/24 09:40
Print Language: MOLDOVAN
[2024-09-30] MEDS: TYLENOL 1000 MG PO (08:18)
[2024-09-30 08:28] LABS: Hematocrit 47.7 % (37.0-47.0); Hemoglobin 15.5 g/dL (12.0-16.0); Mean Corp Hgb Conc. 32.5 g/dL (33.0-37.0); Mean Corpuscular Volume 93.3 fL (81.0-99.0); Nucleated Red Blood Cells % 0 %; Platelet Count 221 10^3/uL (130-400); Red Cell Dist. Width 13.9 % (11.5-14.5)
[2024-09-30 08:45] LABS: Blood Urea Nitrogen 27 mg/dl (7-17); Calcium 9.1 mg/dl (8.4-10.2); Carbon Dioxide 27 mmol/L (22-30); Chloride 108 mmol/L (98-107); Glucose 91 mg/dl (70-99); Sodium 140 mmol/L (135-145); eGFR 28.49
[2024-09-30] MEDS: VIBRAMYCIN 100 MG PO (09:13)
[2024-09-30 09:20] VITALS: BP 118/72
== END 2024-09-30 09:40 | disposition home or self-care (01) ==
LOC: EMR 07:06
PROVIDERS: EMERGENCY PHYSICIAN Emergency Medicine
DX: L03.116 Cellulitis of left lower limb (principal); L03.115 Cellulitis of right lower limb; E78.00 Pure hypercholesterolemia, unspecified; I11.0 Hypertensive heart disease with heart failure; I50.9 Heart failure, unspecified; I48.91 Unspecified atrial fibrillation; Z79.01 Long term (current) use of anticoagulants
CPT/HCPCS: 99283; 80048; 85025